=== PATIENT | male | born 1985 | race African-American/Black ===

== ENCOUNTER 2021-04-12 12:30 | Inpatient (IN) | payer OTHER ==
[2021-04-12 14:28] LABS: BASO % 0.8 % (0-2.0); EOS % 7.3 % (0-4.5); HEMOGLOBIN 7.2 GM/dL (11.7-16.9); LYMPH % 29.9 % (8-40); MCH 25.8 pg (25.7-33.7); MCHC 34.2 g/dl (32.0-35.9); MEAN CELL VOLUME 75.4 fl (80-96); MEAN PLT VOLUME 6.4 fl (7.5-11.1); MONO % 6.8 % (3.8-10.2); NEUT % 55.2 % (42.8-82.8); PLATELET COUNT 353 10^3/uL (134-434); RBC 2.78 M/mm3 (4.00-5.60); RDW 16.8 % (11.9-15.9); WHITE BLOOD COUNT 7.4 K/mm3 (4.0-10.0)
[2021-04-12 14:36] LABS: INR 1.06 (0.83-1.09); PROTHROMBIN TIME (PATIENT) 12.8 SEC (9.7-13.0)
[2021-04-12 14:48] LABS: CHLORIDE 106 mmol/L (98-107); SODIUM 138 mmol/L (136-145)
[2021-04-12 14:50] LABS: ALBUMIN 3.7 g/dl (3.4-5.0); ANION GAP 13 MMOL/L (8-16); CO2 18 mmol/L (21-32); GLUCOSE,RANDOM 87 mg/dL (74-106); MAGNESIUM 2.8 mg/dL (1.8-2.4)
[2021-04-12 14:53] LABS: SGPT/ALT 40 U/L (13-61)
[2021-04-12 14:54] LABS: SGOT/AST 13 U/L (15-37)
[2021-04-12 14:55] LABS: BILIRUBIN,TOTAL 0.2 mg/dL (0.2-1); TOT PROT 7.4 g/dl (6.4-8.2)
[2021-04-12 14:56] LABS: ALK PHOS 75 U/L (45-117)
[2021-04-12 15:57] LABS: CALCIUM 6.4 mg/dL (8.5-10.1); CREATININE 14.3 mg/dL (0.55-1.3); PHOSPHOROUS 8.6 mg/dL (2.5-4.9)
[2021-04-12] MEDS ORDERED: CALCIUM GLUCONATE 10% - 1,000 MG/10 ML VIAL IVPUSH ONE (16:17)
[2021-04-12] MEDS ORDERED: CALCIUM GLUCONATE 10% - 1,000 MG/10 ML VIAL ONE (16:27)
[2021-04-12] MEDS ORDERED: SODIUM ZIRCONIUM CYCLOSILICATE (LOKELMA) 5 GM PACKET ONE (16:27)
[2021-04-12] MEDS: SODIUM ZIRCONIUM CYCLOSILICATE (LOKELMA) 5 GM PACKET PO SCH (16:32)
[2021-04-12] MEDS ORDERED: SODIUM BICARBONATE 8.4% 50 MEQ/50 ML DISP.SYRIN IVPUSH ONE (17:13)
[2021-04-12] MEDS ORDERED: amLODIPine BESYLATE 10 MG TABLET (FP) PO ONE (17:13)
[2021-04-12] MEDS ORDERED: NAPH,MB-DB/K PH,MBDB POWDER PACKET ONE (17:23)
[2021-04-12] MEDS ORDERED: SODIUM BICARBONATE 8.4% - 50 ML ONE (17:23)
[2021-04-12] MEDS ORDERED: amLODIPine BESYLATE 5 MG TABLET (FP) ONE (17:23)
[2021-04-12] MEDS: SODIUM CHLORIDE 0.45% 1,000 ML IV SCH (17:35)
[2021-04-12] MEDS: CALCIUM ACETATE 667 MG CAPSULE (FP) PO SCH (17:35)
[2021-04-12 21:36] LABS: HEPATITIS B SURFACE AG MATERN NON-REACTIVE (NONREACTIVE)
[2021-04-12] MEDS: SODIUM BICARBONATE 650 MG TABLET PO SCH (22:45)
[2021-04-12 23:00] VITALS: BMI 34.8
[2021-04-12 23:24] LABS: EPI CELLS 4 /uL (0-25.1); HYALINE CASTS 0 /uL (0-3.1); PH,URINE 6.5 (5.0-8.0); URINE APPEARANCE CLEAR; URINE BACTERIA 2 /uL (0-1359); URINE BILIRUBIN NEGATIVE (NEGATIVE); URINE COLOR YELLOW; URINE GLUCOSE (UA) NEGATIVE (NEGATIVE); URINE KETONE NEGATIVE (NEGATIVE); URINE LEUK ESTERASE NEGATIVE (NEGATIVE); URINE NITRITE NEGATIVE (NEGATIVE); URINE PROTEIN 3+ (NEGATIVE); URINE RBC 9 /uL (0-23.9); URINE UROBILINOGEN 0.2 mg/dL (0.2-1.0); URINE WBC 7 /uL (0-25.8)
[2021-04-13 00:10] LABS: LDH 318 U/L (87-246)
[2021-04-13 01:41] LABS: IRON SERUM 48 ug/dL (50-175); TOTAL IRON BINDING CAPACITY 214 ug/dL (250-450)
[2021-04-13 03:35] LABS: CHLORIDE 107 mmol/L (98-107); SODIUM 139 mmol/L (136-145)
[2021-04-13 03:36] LABS: ANION GAP 14 MMOL/L (8-16); CO2 18 mmol/L (21-32)
[2021-04-13 04:05] LABS: ALBUMIN 3.2 g/dl (3.4-5.0)
[2021-04-13 04:06] LABS: GLUCOSE,RANDOM 99 mg/dL (74-106)
[2021-04-13 04:09] LABS: SGOT/AST 13 U/L (15-37); SGPT/ALT 31 U/L (13-61)
[2021-04-13 04:10] LABS: BILIRUBIN,TOTAL 0.3 mg/dL (0.2-1); TOT PROT 6.6 g/dl (6.4-8.2)
[2021-04-13 04:11] LABS: ALK PHOS 69 U/L (45-117)
[2021-04-13 04:31] LABS: BLOOD UREA NITROGEN 113.1 mg/dL (7-18); CALCIUM 5.9 mg/dL (8.5-10.1)
[2021-04-13] MEDS: SODIUM BICARBONATE 650 MG TABLET PO SCH ×3 (06:22→22:03)
[2021-04-13] MEDS ORDERED: CALCIUM GLUCONATE 10% - 1,000 MG/10 ML VIAL IVPUSH ONE ×2 (06:36→06:53)
[2021-04-13 07:22] LABS: BASO % 0.8 % (0-2.0); HEMATOCRIT 23.7 % (35.4-49); HEMOGLOBIN 8.1 GM/dL (11.7-16.9); LYMPH % 29.8 % (8-40); MCHC 34.1 g/dl (32.0-35.9); MEAN CELL VOLUME 76.3 fl (80-96); MEAN PLT VOLUME 6.2 fl (7.5-11.1); MONO % 6.4 % (3.8-10.2); PLATELET COUNT 318 10^3/uL (134-434); RBC 3.11 M/mm3 (4.00-5.60); RDW 16.5 % (11.9-15.9); WHITE BLOOD COUNT 7.9 K/mm3 (4.0-10.0)
[2021-04-13 07:43] LABS: CHLORIDE 107 mmol/L (98-107); SODIUM 139 mmol/L (136-145)
[2021-04-13 07:47] LABS: ALBUMIN 3.3 g/dl (3.4-5.0)
[2021-04-13] MEDS: CALCIUM ACETATE 667 MG CAPSULE (FP) PO SCH ×3 (07:47→17:40)
[2021-04-13 07:50] LABS: CO2 17 mmol/L (21-32); MAGNESIUM 2.5 mg/dL (1.8-2.4); SGOT/AST 15 U/L (15-37); SGPT/ALT 33 U/L (13-61)
[2021-04-13 07:52] LABS: GLUCOSE,RANDOM 80 mg/dL (74-106)
[2021-04-13 07:54] LABS: TRIGLYCERIDES 218 mg/dL (0-150)
[2021-04-13 07:55] LABS: CHOLESTEROL 203 mg/dL (50-200)
[2021-04-13 07:56] LABS: BILIRUBIN,TOTAL 0.3 mg/dL (0.2-1); LDL CHOLESTEROL (ONLY SJRH) 126 mg/dL (5-100)
[2021-04-13 07:57] LABS: ALK PHOS 73 U/L (45-117)
[2021-04-13 07:58] LABS: ANION GAP 14 MMOL/L (8-16); BLOOD UREA NITROGEN 114.3 mg/dL (7-18); CREATININE 13.7 mg/dL (0.55-1.3); HDL CHOLESTEROL 35 mg/dL (40-60)
[2021-04-13] MEDS ORDERED: PT OWN MED DRAWER 7, Y5N ONE (08:33)
[2021-04-13] MEDS: CALCITRIOL 0.25 MCG CAPSULE (FP) PO SCH ×2 (09:27→22:02)
[2021-04-13] MEDS: SODIUM ZIRCONIUM CYCLOSILICATE (LOKELMA) 5 GM PACKET PO SCH (09:28)
[2021-04-13] MEDS ORDERED: INSULIN REGULAR HUMAN 100 UNITS/ML *VIAL IVPUSH ONE (09:45)
[2021-04-13] MEDS ORDERED: SODIUM CHLORIDE 250 ML IV PRN (13:43)
[2021-04-13] MEDS ORDERED: LIDOCAINE HCL 1%, 10 MG/ML (20ML VIAL) ONE (14:20)
[2021-04-13] MEDS: PANTOPRAZOLE 40 MG TABLET PO SCH (15:00)
[2021-04-13] MEDS ORDERED: LIDOCAINE HCL 1%, 10 MG/ML (20ML VIAL) SQ ONE (15:00)
[2021-04-13] MEDS: ACETAMINOPHEN 325 MG TABLET (FP) PO PRN (17:40)
[2021-04-13] MEDS: SODIUM CHLORIDE 0.45% 1,000 ML IV SCH (19:14)
[2021-04-13] MEDS ORDERED: ROSUVASTATIN CA 20 MG TABLET (FP) PO SCH (22:00)
[2021-04-13] MEDS: ROSUVASTATIN CA 10 MG TABLET (FP) PO SCH (22:02)
[2021-04-13] MEDS ORDERED: amLODIPine BESYLATE 5 MG TABLET (FP) PO ONE (22:25)
[2021-04-14] MEDS: SODIUM BICARBONATE 650 MG TABLET PO SCH (05:50)
[2021-04-14 08:16] LABS: BASO % 0.6 % (0-2.0); EOS % 4.9 % (0-4.5); HEMATOCRIT 19.4 % (35.4-49); LYMPH % 29.9 % (8-40); MCH 26.6 pg (25.7-33.7); MCHC 35.2 g/dl (32.0-35.9); MEAN CELL VOLUME 75.6 fl (80-96); MEAN PLT VOLUME 7.1 fl (7.5-11.1); MONO % 9.2 % (3.8-10.2); NEUT % 55.4 % (42.8-82.8); PLATELET COUNT 274 10^3/uL (134-434); RBC 2.57 M/mm3 (4.00-5.60); RDW 16.8 % (11.9-15.9); WHITE BLOOD COUNT 7.9 K/mm3 (4.0-10.0)
[2021-04-14 08:30] LABS: CHLORIDE 104 mmol/L (98-107); SODIUM 140 mmol/L (136-145)
[2021-04-14] MEDS: CALCIUM ACETATE 667 MG CAPSULE (FP) PO SCH ×3 (08:31→17:04)
[2021-04-14 08:42] LABS: ALBUMIN 3.1 g/dl (3.4-5.0); ANION GAP 12 MMOL/L (8-16); CO2 23 mmol/L (21-32); GLUCOSE,RANDOM 82 mg/dL (74-106); MAGNESIUM 2.1 mg/dL (1.8-2.4)
[2021-04-14 08:43] LABS: SGOT/AST 15 U/L (15-37); SGPT/ALT 29 U/L (13-61)
[2021-04-14 08:45] LABS: BILIRUBIN,TOTAL 0.5 mg/dL (0.2-1); HEMOGLOBIN 6.8 GM/dL (11.7-16.9); PHOSPHOROUS 7.9 mg/dL (2.5-4.9); TOT PROT 6.4 g/dl (6.4-8.2)
[2021-04-14 08:46] LABS: ALK PHOS 66 U/L (45-117)
[2021-04-14 08:50] LABS: BLOOD UREA NITROGEN 72.3 mg/dL (7-18); CALCIUM 6.5 mg/dL (8.5-10.1); CREATININE 9.9 mg/dL (0.55-1.3)
[2021-04-14] MEDS ORDERED: amLODIPine BESYLATE 5 MG TABLET (FP) PO ONE (09:00)
[2021-04-14] MEDS: PANTOPRAZOLE 40 MG TABLET PO SCH (10:31)
[2021-04-14] MEDS: SODIUM ZIRCONIUM CYCLOSILICATE (LOKELMA) 5 GM PACKET PO SCH (10:32)
[2021-04-14] MEDS: CALCITRIOL 0.25 MCG CAPSULE (FP) PO SCH ×2 (10:32→21:53)
[2021-04-14] MEDS ORDERED: CALCIUM GLUCONATE 10% - 1,000 MG/10 ML VIAL IVPUSH ONE (12:50)
[2021-04-14] MEDS: METOPROLOL TARTRATE 25 MG TABLET (FP) PO SCH ×2 (13:22→21:16)
[2021-04-14] MEDS: ACETAMINOPHEN 325 MG TABLET (FP) PO PRN (17:13)
[2021-04-14 20:22] LABS: BASO % 0.6 % (0-2.0); EOS % 4.3 % (0-4.5); HEMOGLOBIN 9.2 GM/dL (11.7-16.9); LYMPH % 23.1 % (8-40); MCH 26.7 pg (25.7-33.7); MCHC 32.9 g/dl (32.0-35.9); MEAN CELL VOLUME 81.1 fl (80-96); MEAN PLT VOLUME 6.6 fl (7.5-11.1); MONO % 10.2 % (3.8-10.2); NEUT % 61.8 % (42.8-82.8); PLATELET COUNT 267 10^3/uL (134-434); RBC 3.45 M/mm3 (4.00-5.60); RDW 16.5 % (11.9-15.9); WHITE BLOOD COUNT 9.1 K/mm3 (4.0-10.0)
[2021-04-14] MEDS ORDERED: ACETAMINOPHEN 1000 MG/100 ML VIAL (NON FORMULARY) IVPB ONE (21:00)
[2021-04-14] MEDS: ROSUVASTATIN CA 10 MG TABLET (FP) PO SCH (21:16)
[2021-04-14] MEDS: traMADol HCL 50 MG TABLET PO PRN (22:44)
[2021-04-15] MEDS ORDERED: SODIUM CHLORIDE 250 ML IV PRN (08:11)
[2021-04-15] MEDS: amLODIPine BESYLATE 10 MG TABLET (FP) PO SCH ×2 (08:20→10:27)
[2021-04-15] MEDS: CALCIUM ACETATE 667 MG CAPSULE (FP) PO SCH ×3 (08:20→17:47)
[2021-04-15] MEDS: traMADol HCL 50 MG TABLET PO PRN ×2 (08:25→22:10)
[2021-04-15] MEDS: METOPROLOL TARTRATE 50 MG TABLET (FP) PO SCH ×2 (10:26→22:10)
[2021-04-15] MEDS: CALCITRIOL 0.25 MCG CAPSULE (FP) PO SCH ×2 (10:26→22:10)
[2021-04-15] MEDS: PANTOPRAZOLE 40 MG TABLET PO SCH (10:26)
[2021-04-15 12:29] LABS: BASO % 0.7 % (0-2.0); EOS % 3.3 % (0-4.5); HEMATOCRIT 22.5 % (35.4-49); HEMOGLOBIN 7.9 GM/dL (11.7-16.9); LYMPH % 25.4 % (8-40); MCH 27.2 pg (25.7-33.7); MCHC 35.3 g/dl (32.0-35.9); MEAN CELL VOLUME 76.9 fl (80-96); MEAN PLT VOLUME 6.8 fl (7.5-11.1); MONO % 6.8 % (3.8-10.2); NEUT % 63.8 % (42.8-82.8); PLATELET COUNT 243 10^3/uL (134-434); RBC 2.92 M/mm3 (4.00-5.60); RDW 16.5 % (11.9-15.9); WHITE BLOOD COUNT 6.6 K/mm3 (4.0-10.0)
[2021-04-15 12:48] LABS: CHLORIDE 102 mmol/L (98-107); SODIUM 138 mmol/L (136-145)
[2021-04-15 12:51] LABS: ALBUMIN 3.1 g/dl (3.4-5.0); ANION GAP 10 MMOL/L (8-16); CO2 27 mmol/L (21-32); GLUCOSE,RANDOM 110 mg/dL (74-106); MAGNESIUM 2.2 mg/dL (1.8-2.4)
[2021-04-15 12:54] LABS: PHOSPHOROUS 4.8 mg/dL (2.5-4.9); SGOT/AST 21 U/L (15-37); SGPT/ALT 33 U/L (13-61)
[2021-04-15 12:56] LABS: BILIRUBIN,TOTAL 0.3 mg/dL (0.2-1); TOT PROT 6.6 g/dl (6.4-8.2)
[2021-04-15 12:57] LABS: ALK PHOS 59 U/L (45-117)
[2021-04-15 12:59] LABS: CALCIUM 6.9 mg/dL (8.5-10.1); CREATININE 8.5 mg/dL (0.55-1.3)
[2021-04-15 16:08] LABS: ATYPICAL pANCA <1:20 titer (Neg:<1:20); C-ANCA <1:20 titer (Neg:<1:20)
[2021-04-15] MEDS: ACETAMINOPHEN 325 MG TABLET (FP) PO PRN (17:57)
[2021-04-15] MEDS: ROSUVASTATIN CA 10 MG TABLET (FP) PO SCH (22:10)
[2021-04-16] MEDS: METOPROLOL TARTRATE 50 MG TABLET (FP) PO SCH (10:15)
[2021-04-16] MEDS: CALCIUM ACETATE 667 MG CAPSULE (FP) PO SCH ×2 (10:15→12:26)
[2021-04-16] MEDS: amLODIPine BESYLATE 10 MG TABLET (FP) PO SCH (10:16)
[2021-04-16] MEDS: PANTOPRAZOLE 40 MG TABLET PO SCH (10:16)
[2021-04-16] MEDS: CALCITRIOL 0.25 MCG CAPSULE (FP) PO SCH (10:16)
[2021-04-16 10:50] LABS: BASO % 0.7 % (0-2.0); EOS % 3.8 % (0-4.5); HEMATOCRIT 25.5 % (35.4-49); HEMOGLOBIN 8.8 GM/dL (11.7-16.9); LYMPH % 20.8 % (8-40); MCH 26.8 pg (25.7-33.7); MCHC 34.6 g/dl (32.0-35.9); MEAN CELL VOLUME 77.4 fl (80-96); MEAN PLT VOLUME 6.6 fl (7.5-11.1); MONO % 9.8 % (3.8-10.2); NEUT % 64.9 % (42.8-82.8); PLATELET COUNT 246 10^3/uL (134-434); RBC 3.29 M/mm3 (4.00-5.60); RDW 16.6 % (11.9-15.9); WHITE BLOOD COUNT 8.7 K/mm3 (4.0-10.0)
[2021-04-16 11:08] LABS: CHLORIDE 100 mmol/L (98-107); SODIUM 138 mmol/L (136-145)
[2021-04-16 11:10] LABS: ALBUMIN 3.2 g/dl (3.4-5.0); ANION GAP 11 MMOL/L (8-16); BLOOD UREA NITROGEN 63.1 mg/dL (7-18); CALCIUM 7.1 mg/dL (8.5-10.1); CO2 27 mmol/L (21-32); GLUCOSE,RANDOM 103 mg/dL (74-106)
[2021-04-16 11:13] LABS: SGPT/ALT 28 U/L (13-61)
[2021-04-16 11:14] LABS: SGOT/AST 18 U/L (15-37)
[2021-04-16 11:15] LABS: BILIRUBIN,TOTAL 0.3 mg/dL (0.2-1)
[2021-04-16 11:16] LABS: ALK PHOS 69 U/L (45-117)
[2021-04-16 11:28] LABS: CREATININE 9.4 mg/dL (0.55-1.3)
[2021-04-16] MEDS ORDERED: hydrALAZINE HCL 10 MG TABLET PO SCH (14:00)
[2021-04-16 15:44] VITALS: BP 151/108; PULSE 102; TEMP 98
[2021-04-16] MEDS ORDERED: METOPROLOL TARTRATE 50 MG TABLET (FP) PO SCH (22:00)
== END 2021-04-16 16:37 | disposition left against medical advice (07) | DRG 469 ==
LOC: JER 12:30 → JERBED 19:23 → J4W 22:22
PROVIDERS: ADMIT Internal Medicine; ATTEND Internal Medicine
PROC: 30233N1 Transfusion of Nonautologous Red Blood Cells into Peripheral Vein, Percutaneous Approach (ICD-10-PCS; 2021-04-12)
PROC: 5A1D70Z Performance of Urinary Filtration, Intermittent, Less than 6 Hours Per Day (ICD-10-PCS; principal; 2021-04-15)
DX: N17.9 Acute kidney failure, unspecified (principal); E87.2 Acidosis; D64.9 Anemia, unspecified; I12.9 Hypertensive chronic kidney disease with stage 1 through stage 4 chronic kidney disease, or unspecified chronic kidney disease; E87.5 Hyperkalemia; N18.9 Chronic kidney disease, unspecified; E83.51 Hypocalcemia; E83.39 Other disorders of phosphorus metabolism; E78.5 Hyperlipidemia, unspecified; E66.9 Obesity, unspecified; Z68.34 Body mass index [BMI] 34.0-34.9, adult
CPT/HCPCS: 36415; 36430; 71045-TC-FY; 76775-TC; 76856-TC; 80051; 80053; 80061; 81003; 82272; 82310; 82607; 82728; 82746; 82962; 83010; 83036; 83516; 83520; 83540; 83550; 83615; 83735; 83970; 84100; 84155; 84165; 85025; 85045; 85610; 86038; 86160; 86225; 86256; 86706; 86803; 86850; 86900; 86901; 86922; 87207; 87340; 87517; 87522; 93005; 93010; 99285-25; C9803; J0131; P9051; P9058; U0003; U0005

== ENCOUNTER 2021-04-18 10:42 | Inpatient (IN) | payer OTHER ==
[2021-04-18 11:12] VITALS: BMI 34.8
[2021-04-18 13:33] LABS: BASO % 1.2 % (0-2.0); EOS % 3.6 % (0-4.5); HEMOGLOBIN 9.5 GM/dL (11.7-16.9); LYMPH % 26.3 % (8-40); MCH 26.4 pg (25.7-33.7); MCHC 33.8 g/dl (32.0-35.9); MEAN PLT VOLUME 7.5 fl (7.5-11.1); MONO % 17.8 % (3.8-10.2); NEUT % 51.1 % (42.8-82.8); PLATELET COUNT 278 10^3/uL (134-434); RBC 3.58 M/mm3 (4.00-5.60); RDW 16.1 % (11.9-15.9); WHITE BLOOD COUNT 5.6 K/mm3 (4.0-10.0)
[2021-04-18 13:42] LABS: INR 1.14 (0.83-1.09); PROTHROMBIN TIME (PATIENT) 13.7 SEC (9.7-13.0)
[2021-04-18 13:45] LABS: ACTIVATED PTT 28.7 SECONDS (25.2-36.5)
[2021-04-18 14:01] LABS: CHLORIDE 96 mmol/L (98-107); SODIUM 133 mmol/L (136-145)
[2021-04-18 14:03] LABS: CALCIUM 8.1 mg/dL (8.5-10.1)
[2021-04-18 14:04] LABS: ALBUMIN 3.8 g/dl (3.4-5.0); ANION GAP 15 MMOL/L (8-16); BLOOD UREA NITROGEN 86.7 mg/dL (7-18); CO2 22 mmol/L (21-32); GLUCOSE,RANDOM 81 mg/dL (74-106)
[2021-04-18 14:07] LABS: SGOT/AST 35 U/L (15-37); SGPT/ALT 37 U/L (13-61)
[2021-04-18 14:08] LABS: BILIRUBIN,TOTAL 0.4 mg/dL (0.2-1); TOT PROT 8.4 g/dl (6.4-8.2)
[2021-04-18 14:09] LABS: ALK PHOS 82 U/L (45-117); CREATININE 12.6 mg/dL (0.55-1.3)
[2021-04-18] MEDS ORDERED: CASIRIVIMAB/IMDEVIMAB 10 ML in SODIUM CHLORIDE 100 ML IVPB ONE (14:29)
[2021-04-18 15:09] LABS: SARS COV-2 MOLECULAR Presumptive Positive (Negative)
[2021-04-18] MEDS ORDERED: amLODIPine BESYLATE 10 MG TABLET (FP) PO ONE (15:51)
[2021-04-18] MEDS ORDERED: amLODIPine BESYLATE 5 MG TABLET (FP) ONE (16:02)
[2021-04-18] MEDS ORDERED: SODIUM CHLORIDE 250 ML IV PRN (16:08)
[2021-04-18] MEDS ORDERED: ceFAZolin SODIUM 1 GM VIAL IVPB ONE (17:37)
[2021-04-18] MEDS ORDERED: PROPOFOL 20 ML ONE (17:39)
[2021-04-18] MEDS ORDERED: MIDAZOLAM HCL 2 MG/2 ML SINGLE DOSE VIAL ONE ×3 (17:39→17:56)
[2021-04-18] MEDS ORDERED: LIDOCAINE HCL 1%, 10 MG/ML (20ML VIAL) INF ONE (18:06)
[2021-04-18] MEDS ORDERED: ONDANSETRON 4 MG/2 ML VIAL IVPUSH PRN (18:50)
[2021-04-18] MEDS ORDERED: amLODIPine BESYLATE 10 MG TABLET (FP) PO SCH (20:00)
[2021-04-18] MEDS: ACETAMINOPHEN 325 MG TABLET (FP) PO PRN (21:05)
[2021-04-18] MEDS: METOPROLOL TARTRATE 50 MG TABLET (FP) PO SCH (21:06)
[2021-04-19] MEDS ORDERED: ACETAMINOPHEN 1000 MG/100 ML VIAL IVPB ONE (00:38)
[2021-04-19] MEDS ORDERED: SODIUM CHLORIDE 250 ML IV PRN (08:58)
[2021-04-19] MEDS ORDERED: HEPARIN NA (PORCINE) 5,000 UNITS/ML 1ML VIAL IVPUSH ONE ×2 (09:00→16:08)
[2021-04-19 09:37] LABS: HEMOGLOBIN 8.1 GM/dL (11.7-16.9); MCH 26.8 pg (25.7-33.7); MCHC 34.9 g/dl (32.0-35.9); MEAN CELL VOLUME 76.6 fl (80-96); MEAN PLT VOLUME 7.3 fl (7.5-11.1); PLATELET COUNT 226 10^3/uL (134-434); RBC 3.01 M/mm3 (4.00-5.60); WHITE BLOOD COUNT 5.4 K/mm3 (4.0-10.0)
[2021-04-19 09:57] LABS: CHLORIDE 101 mmol/L (98-107); SODIUM 136 mmol/L (136-145)
[2021-04-19 09:58] LABS: ANION GAP 15 MMOL/L (8-16); BLOOD UREA NITROGEN 94.8 mg/dL (7-18); CALCIUM 7.6 mg/dL (8.5-10.1); CO2 20 mmol/L (21-32); GLUCOSE,RANDOM 74 mg/dL (74-106)
[2021-04-19 10:00] LABS: MAGNESIUM 2.6 mg/dL (1.8-2.4)
[2021-04-19 10:30] LABS: CREATININE 13.8 mg/dL (0.55-1.3); PHOSPHOROUS 9.1 mg/dL (2.5-4.9)
[2021-04-19 10:40] LABS: ANISOCYTOSIS 2+; MACROCYTOSIS 0; PLATELET ESTIMATE NORMAL
[2021-04-19] MEDS: amLODIPine BESYLATE 10 MG TABLET (FP) PO SCH (10:41)
[2021-04-19] MEDS: hydrALAZINE HCL 25 MG TABLET (FP) PO SCH ×2 (10:41→21:10)
[2021-04-19] MEDS: METOPROLOL TARTRATE 50 MG TABLET (FP) PO SCH ×2 (10:41→21:10)
[2021-04-19] MEDS: ACETAMINOPHEN 325 MG TABLET (FP) PO PRN ×2 (12:57→21:10)
[2021-04-19] MEDS: SEVELAMER CARBONATE 800 MG TAB (FP) PO SCH ×2 (12:57→17:24)
[2021-04-19 14:08] LABS: SARS-CoV-2 NAA Detected (Not Detected)
[2021-04-20] MEDS: ACETAMINOPHEN 325 MG TABLET (FP) PO PRN ×2 (05:46→13:08)
[2021-04-20 07:43] LABS: BASO % 1.1 % (0-2.0); EOS % 6.1 % (0-4.5); HEMATOCRIT 22.6 % (35.4-49); HEMOGLOBIN 7.8 GM/dL (11.7-16.9); MCH 26.7 pg (25.7-33.7); MCHC 34.7 g/dl (32.0-35.9); MEAN CELL VOLUME 76.9 fl (80-96); MEAN PLT VOLUME 7.1 fl (7.5-11.1); MONO % 13.1 % (3.8-10.2); NEUT % 50.7 % (42.8-82.8); PLATELET COUNT 212 10^3/uL (134-434); RBC 2.93 M/mm3 (4.00-5.60); RDW 16.1 % (11.9-15.9); WHITE BLOOD COUNT 7.1 K/mm3 (4.0-10.0)
[2021-04-20 07:56] LABS: CHLORIDE 98 mmol/L (98-107); SODIUM 136 mmol/L (136-145)
[2021-04-20 08:00] LABS: ANION GAP 12 MMOL/L (8-16); CO2 26 mmol/L (21-32); GLUCOSE,RANDOM 85 mg/dL (74-106); MAGNESIUM 2.3 mg/dL (1.8-2.4)
[2021-04-20 08:03] LABS: PHOSPHOROUS 8.8 mg/dL (2.5-4.9); SGOT/AST 22 U/L (15-37); SGPT/ALT 18 U/L (13-61)
[2021-04-20 08:04] LABS: BILIRUBIN,TOTAL 0.3 mg/dL (0.2-1); LDH 306 U/L (87-246)
[2021-04-20 08:06] LABS: ALK PHOS 71 U/L (45-117)
[2021-04-20 08:20] LABS: ALBUMIN 2.9 g/dl (3.4-5.0); BLOOD UREA NITROGEN 62.1 mg/dL (7-18); CREATININE 10.4 mg/dL (0.55-1.3)
[2021-04-20] MEDS: METOPROLOL TARTRATE 50 MG TABLET (FP) PO SCH ×2 (09:22→21:17)
[2021-04-20] MEDS: SEVELAMER CARBONATE 800 MG TAB (FP) PO SCH ×3 (09:22→17:38)
[2021-04-20] MEDS: hydrALAZINE HCL 25 MG TABLET (FP) PO SCH ×3 (09:22→21:17)
[2021-04-20] MEDS: APIXABAN 2.5 MG TABLET PO SCH ×2 (09:22→21:17)
[2021-04-20] MEDS: amLODIPine BESYLATE 10 MG TABLET (FP) PO SCH (09:22)
[2021-04-21] MEDS: hydrALAZINE HCL 25 MG TABLET (FP) PO SCH ×3 (06:08→21:09)
[2021-04-21] MEDS: SEVELAMER CARBONATE 800 MG TAB (FP) PO SCH ×3 (09:40→17:53)
[2021-04-21] MEDS: amLODIPine BESYLATE 10 MG TABLET (FP) PO SCH (09:40)
[2021-04-21] MEDS: APIXABAN 2.5 MG TABLET PO SCH ×2 (09:40→21:09)
[2021-04-21] MEDS: METOPROLOL TARTRATE 50 MG TABLET (FP) PO SCH ×2 (09:40→21:09)
[2021-04-21 09:55] LABS: BASO % 0.9 % (0-2.0); EOS % 7.7 % (0-4.5); HEMATOCRIT 23.9 % (35.4-49); HEMOGLOBIN 8.4 GM/dL (11.7-16.9); LYMPH % 30.6 % (8-40); MCH 26.7 pg (25.7-33.7); MCHC 35.1 g/dl (32.0-35.9); MEAN CELL VOLUME 76.1 fl (80-96); MEAN PLT VOLUME 7.2 fl (7.5-11.1); MONO % 7.1 % (3.8-10.2); NEUT % 53.7 % (42.8-82.8); PLATELET COUNT 280 10^3/uL (134-434); RBC 3.15 M/mm3 (4.00-5.60); RDW 15.9 % (11.9-15.9); WHITE BLOOD COUNT 9.2 K/mm3 (4.0-10.0)
[2021-04-21 10:10] LABS: CHLORIDE 99 mmol/L (98-107); SODIUM 136 mmol/L (136-145)
[2021-04-21 10:14] LABS: ALBUMIN 3.2 g/dl (3.4-5.0); ANION GAP 14 MMOL/L (8-16); BLOOD UREA NITROGEN 71.7 mg/dL (7-18); CO2 23 mmol/L (21-32); GLUCOSE,RANDOM 81 mg/dL (74-106); MAGNESIUM 2.3 mg/dL (1.8-2.4)
[2021-04-21 10:17] LABS: SGOT/AST 26 U/L (15-37); SGPT/ALT 16 U/L (13-61)
[2021-04-21 10:19] LABS: BILIRUBIN,TOTAL 0.3 mg/dL (0.2-1); TOT PROT 7.4 g/dl (6.4-8.2)
[2021-04-21 10:21] LABS: ALK PHOS 71 U/L (45-117)
[2021-04-21 10:38] LABS: LDH 410 U/L (87-246)
[2021-04-21 11:56] LABS: CALCIUM 6.9 mg/dL (8.5-10.1); CREATININE 12.1 mg/dL (0.55-1.3); PHOSPHOROUS 9.3 mg/dL (2.5-4.9)
[2021-04-21] MEDS ORDERED: SODIUM CHLORIDE 250 ML IV PRN (14:55)
[2021-04-22] MEDS: hydrALAZINE HCL 25 MG TABLET (FP) PO SCH ×3 (06:45→21:21)
[2021-04-22] MEDS: SEVELAMER CARBONATE 800 MG TAB (FP) PO SCH ×3 (08:37→18:20)
[2021-04-22 09:55] LABS: HEMATOCRIT 22.7 % (35.4-49); HEMOGLOBIN 7.7 GM/dL (11.7-16.9); MCH 25.9 pg (25.7-33.7); MCHC 33.9 g/dl (32.0-35.9); MEAN CELL VOLUME 76.6 fl (80-96); MEAN PLT VOLUME 7.2 fl (7.5-11.1); PLATELET COUNT 223 10^3/uL (134-434); RBC 2.96 M/mm3 (4.00-5.60); WHITE BLOOD COUNT 2.7 K/mm3 (4.0-10.0)
[2021-04-22 10:03] LABS: CHLORIDE 100 mmol/L (98-107); SODIUM 136 mmol/L (136-145)
[2021-04-22 10:05] LABS: ALBUMIN 3.1 g/dl (3.4-5.0); ANION GAP 11 MMOL/L (8-16); BLOOD UREA NITROGEN 60.4 mg/dL (7-18); CO2 26 mmol/L (21-32); GLUCOSE,RANDOM 104 mg/dL (74-106); MAGNESIUM 2.1 mg/dL (1.8-2.4)
[2021-04-22 10:08] LABS: SGOT/AST 25 U/L (15-37); SGPT/ALT 19 U/L (13-61)
[2021-04-22 10:09] LABS: PHOSPHOROUS 6.7 mg/dL (2.5-4.9)
[2021-04-22 10:10] LABS: BILIRUBIN,TOTAL 0.2 mg/dL (0.2-1)
[2021-04-22 10:11] LABS: ALK PHOS 71 U/L (45-117)
[2021-04-22 10:13] LABS: LDH 384 U/L (87-246)
[2021-04-22 10:14] LABS: CALCIUM 6.8 mg/dL (8.5-10.1); CREATININE 9.3 mg/dL (0.55-1.3)
[2021-04-22 10:30] LABS: ANISOCYTOSIS 1+; MACROCYTOSIS 0; PLATELET ESTIMATE NORMAL
[2021-04-22] MEDS: METOPROLOL TARTRATE 50 MG TABLET (FP) PO SCH (11:11)
[2021-04-22] MEDS: amLODIPine BESYLATE 10 MG TABLET (FP) PO SCH (11:11)
[2021-04-22] MEDS: APIXABAN 2.5 MG TABLET PO SCH ×2 (11:11→21:21)
[2021-04-22 17:02] LABS: SARS COV-2 MOLECULAR Presumptive Positive (Negative)
[2021-04-22] MEDS: ATENOLOL 50 MG TABLET (FP) PO SCH (18:20)
[2021-04-23] MEDS: hydrALAZINE HCL 25 MG TABLET (FP) PO SCH ×2 (05:23→14:07)
[2021-04-23] MEDS: SEVELAMER CARBONATE 800 MG TAB (FP) PO SCH ×3 (07:55→16:58)
[2021-04-23 08:46] LABS: BASO % 0.8 % (0-2.0); EOS % 7.8 % (0-4.5); HEMATOCRIT 23.4 % (35.4-49); HEMOGLOBIN 8.2 GM/dL (11.7-16.9); MCH 26.9 pg (25.7-33.7); MCHC 34.9 g/dl (32.0-35.9); MEAN CELL VOLUME 76.9 fl (80-96); MEAN PLT VOLUME 7.1 fl (7.5-11.1); MONO % 9.8 % (3.8-10.2); NEUT % 48.6 % (42.8-82.8); PLATELET COUNT 310 10^3/uL (134-434); RBC 3.05 M/mm3 (4.00-5.60); RDW 15.6 % (11.9-15.9); WHITE BLOOD COUNT 8.4 K/mm3 (4.0-10.0)
[2021-04-23 09:09] LABS: CHLORIDE 97 mmol/L (98-107); SODIUM 136 mmol/L (136-145)
[2021-04-23 09:28] LABS: BILIRUBIN,TOTAL 0.3 mg/dL (0.2-1)
[2021-04-23 09:29] LABS: PHOSPHOROUS 7.6 mg/dL (2.5-4.9); SGPT/ALT 41 U/L (13-61)
[2021-04-23 09:30] LABS: ALBUMIN 3.2 g/dl (3.4-5.0); ALK PHOS 84 U/L (45-117); SGOT/AST 49 U/L (15-37)
[2021-04-23 09:31] LABS: ANION GAP 12 MMOL/L (8-16); BLOOD UREA NITROGEN 53.6 mg/dL (7-18); CO2 27 mmol/L (21-32); GLUCOSE,RANDOM 85 mg/dL (74-106); MAGNESIUM 2.2 mg/dL (1.8-2.4); TOT PROT 7.4 g/dl (6.4-8.2)
[2021-04-23] MEDS: ATENOLOL 50 MG TABLET (FP) PO SCH (09:33)
[2021-04-23] MEDS: LISINOPRIL 5 MG TABLET PO SCH (09:33)
[2021-04-23] MEDS: amLODIPine BESYLATE 10 MG TABLET (FP) PO SCH (09:33)
[2021-04-23] MEDS: APIXABAN 2.5 MG TABLET PO SCH ×2 (09:33→21:05)
[2021-04-23 12:07] LABS: SARS-CoV-2 NAA Detected (Not Detected)
[2021-04-23 14:11] LABS: LDH 375 U/L (87-246)
[2021-04-23 14:44] LABS: CREATININE 9.7 mg/dL (0.55-1.3)
[2021-04-23] MEDS ORDERED: PT OWN MED DRAWER 7, Y5N ONE (22:06)
[2021-04-24] MEDS ORDERED: SODIUM CHLORIDE 250 ML IV PRN (06:57)
[2021-04-24] MEDS ORDERED: EPOETIN ALFA-EPBX 4,000 UNIT/ML VIAL SQ ONE (07:00)
[2021-04-24] MEDS ORDERED: HEPARIN NA (PORCINE) 5,000 UNITS/ML 1ML VIAL IVPUSH ONE (07:00)
[2021-04-24 08:56] LABS: BASO % 0.6 % (0-2.0); EOS % 6.3 % (0-4.5); HEMOGLOBIN 7.5 GM/dL (11.7-16.9); LYMPH % 29.1 % (8-40); MCH 26.5 pg (25.7-33.7); MCHC 34.2 g/dl (32.0-35.9); MEAN CELL VOLUME 77.6 fl (80-96); MEAN PLT VOLUME 7.4 fl (7.5-11.1); MONO % 8.6 % (3.8-10.2); NEUT % 55.4 % (42.8-82.8); PLATELET COUNT 313 10^3/uL (134-434); RBC 2.83 M/mm3 (4.00-5.60); RDW 15.6 % (11.9-15.9); WHITE BLOOD COUNT 9.8 K/mm3 (4.0-10.0)
[2021-04-24 09:18] LABS: CHLORIDE 97 mmol/L (98-107); SODIUM 135 mmol/L (136-145)
[2021-04-24 09:27] LABS: ANION GAP 14 MMOL/L (8-16); BLOOD UREA NITROGEN 64.8 mg/dL (7-18); CO2 24 mmol/L (21-32); GLUCOSE,RANDOM 80 mg/dL (74-106); MAGNESIUM 2.3 mg/dL (1.8-2.4)
[2021-04-24 09:30] LABS: PHOSPHOROUS 8.2 mg/dL (2.5-4.9); SGOT/AST 33 U/L (15-37); SGPT/ALT 40 U/L (13-61)
[2021-04-24 09:31] LABS: LDH 374 U/L (87-246)
[2021-04-24 09:32] LABS: BILIRUBIN,TOTAL 0.4 mg/dL (0.2-1)
[2021-04-24 09:33] LABS: ALK PHOS 81 U/L (45-117)
[2021-04-24 09:37] LABS: CALCIUM 6.5 mg/dL (8.5-10.1); CREATININE 11.1 mg/dL (0.55-1.3)
[2021-04-24] MEDS ORDERED: PT OWN MED DRAWER 7, Y5N ONE (10:57)
[2021-04-24] MEDS: APIXABAN 2.5 MG TABLET PO SCH ×2 (11:07→22:18)
[2021-04-24] MEDS: LISINOPRIL 5 MG TABLET PO SCH (11:07)
[2021-04-24] MEDS: SEVELAMER CARBONATE 800 MG TAB (FP) PO SCH ×3 (11:07→17:50)
[2021-04-24] MEDS: amLODIPine BESYLATE 10 MG TABLET (FP) PO SCH (11:08)
[2021-04-24] MEDS: ATENOLOL 50 MG TABLET (FP) PO SCH (11:08)
[2021-04-24] MEDS ORDERED: LISINOPRIL 5 MG TABLET PO ONE (11:56)
[2021-04-25] MEDS ORDERED: PT OWN MED DRAWER 7, Y5N ONE ×2 (09:09→09:13)
[2021-04-25] MEDS: APIXABAN 2.5 MG TABLET PO SCH ×2 (09:12→21:03)
[2021-04-25] MEDS: SEVELAMER CARBONATE 800 MG TAB (FP) PO SCH ×3 (09:12→18:42)
[2021-04-25] MEDS: amLODIPine BESYLATE 10 MG TABLET (FP) PO SCH (09:12)
[2021-04-25] MEDS: ATENOLOL 50 MG TABLET (FP) PO SCH (09:13)
[2021-04-25] MEDS ORDERED: LISINOPRIL 10 MG TABLET PO SCH (10:00)
[2021-04-25 12:10] LABS: BASO % 0.9 % (0-2.0); EOS % 7.3 % (0-4.5); HEMATOCRIT 24.2 % (35.4-49); HEMOGLOBIN 8.3 GM/dL (11.7-16.9); LYMPH % 23.5 % (8-40); MCH 26.5 pg (25.7-33.7); MCHC 34.5 g/dl (32.0-35.9); MEAN CELL VOLUME 76.7 fl (80-96); MEAN PLT VOLUME 7.2 fl (7.5-11.1); MONO % 9.4 % (3.8-10.2); NEUT % 58.9 % (42.8-82.8); PLATELET COUNT 389 10^3/uL (134-434); RBC 3.15 M/mm3 (4.00-5.60); RDW 15.8 % (11.9-15.9)
[2021-04-25 12:47] LABS: ALBUMIN 3.1 g/dl (3.4-5.0); ALK PHOS 101 U/L (45-117); ANION GAP 12 MMOL/L (8-16); BILIRUBIN,TOTAL 0.6 mg/dL (0.2-1); CALCIUM 6.8 mg/dL (8.5-10.1); CHLORIDE 98 mmol/L (98-107); CO2 28 mmol/L (21-32); CREATININE 9.1 mg/dL (0.55-1.3); GLUCOSE,RANDOM 103 mg/dL (74-106); LDH 357 U/L (87-246); MAGNESIUM 2.2 mg/dL (1.8-2.4); PHOSPHOROUS 6.2 mg/dL (2.5-4.9); SGOT/AST 57 U/L (15-37); SGPT/ALT 65 U/L (13-61); SODIUM 138 mmol/L (136-145); TOT PROT 7.4 g/dl (6.4-8.2)
[2021-04-25] MEDS ORDERED: SODIUM CHLORIDE 250 ML IV PRN (14:51)
[2021-04-26] MEDS: SEVELAMER CARBONATE 800 MG TAB (FP) PO SCH ×2 (08:55→13:43)
[2021-04-26] MEDS ORDERED: HEPARIN NA (PORCINE) 5,000 UNITS/ML 1ML VIAL IVPUSH ONE (09:45)
[2021-04-26] MEDS ORDERED: LISINOPRIL 20 MG TABLET PO SCH (10:00)
[2021-04-26] MEDS ORDERED: EPOETIN ALFA-EPBX 10,000 UNIT/ML VIAL SQ ONE (10:15)
[2021-04-26] MEDS: TETRAHYDROZOLINE HCL EYE DROPS OU SCH ×2 (10:42→13:43)
[2021-04-26 10:58] LABS: BASO % 0.8 % (0-2.0); EOS % 7.8 % (0-4.5); HEMATOCRIT 21.7 % (35.4-49); HEMOGLOBIN 7.5 GM/dL (11.7-16.9); LYMPH % 24.7 % (8-40); MCH 27.1 pg (25.7-33.7); MCHC 34.8 g/dl (32.0-35.9); MEAN CELL VOLUME 77.7 fl (80-96); MEAN PLT VOLUME 7.6 fl (7.5-11.1); MONO % 5.8 % (3.8-10.2); NEUT % 60.9 % (42.8-82.8); PLATELET COUNT 412 10^3/uL (134-434); RBC 2.79 M/mm3 (4.00-5.60); RDW 15.8 % (11.9-15.9); WHITE BLOOD COUNT 9.6 K/mm3 (4.0-10.0)
[2021-04-26 11:16] LABS: CHLORIDE 98 mmol/L (98-107); SODIUM 136 mmol/L (136-145)
[2021-04-26 11:19] LABS: ANION GAP 14 MMOL/L (8-16); BLOOD UREA NITROGEN 72.9 mg/dL (7-18); CO2 25 mmol/L (21-32); GLUCOSE,RANDOM 129 mg/dL (74-106)
[2021-04-26 11:20] LABS: MAGNESIUM 2.2 mg/dL (1.8-2.4)
[2021-04-26 11:22] LABS: SGOT/AST 39 U/L (15-37); SGPT/ALT 57 U/L (13-61)
[2021-04-26 11:23] LABS: PHOSPHOROUS 7.7 mg/dL (2.5-4.9)
[2021-04-26 11:24] LABS: BILIRUBIN,TOTAL 0.3 mg/dL (0.2-1); TOT PROT 6.9 g/dl (6.4-8.2)
[2021-04-26 11:25] LABS: ALK PHOS 95 U/L (45-117); LDH 324 U/L (87-246)
[2021-04-26 11:33] LABS: CALCIUM 6.8 mg/dL (8.5-10.1); CREATININE 11.4 mg/dL (0.55-1.3)
[2021-04-26] MEDS ORDERED: PT OWN MED DRAWER 7, Y5N ONE (12:06)
[2021-04-26] MEDS ORDERED: ATENOLOL 50 MG TABLET (FP) PO SCH ×2 (12:17→13:15)
[2021-04-26 13:25] VITALS: TEMP 98.5
[2021-04-26] MEDS: APIXABAN 2.5 MG TABLET PO SCH (13:41)
[2021-04-26] MEDS: amLODIPine BESYLATE 10 MG TABLET (FP) PO SCH (13:41)
[2021-04-26] MEDS: ATENOLOL 50 MG TABLET (FP) PO SCH (13:53)
[2021-04-26 14:24] VITALS: BP 146/102; PULSE 82
[2021-04-26] MEDS ORDERED: EPOETIN ALFA-EPBX 4,000 UNIT/ML VIAL SQ ONE (14:51)
== END 2021-04-26 15:27 | disposition home health service (06) | DRG 470 ==
LOC: JER 10:42 → JERBED 12:41 → J5S 18:50
PROVIDERS: ADMIT Internal Medicine; ATTEND Nurse Practitioner Family
PROC: 05HM33Z Insertion of Infusion Device into Right Internal Jugular Vein, Percutaneous Approach (ICD-10-PCS; 2021-04-18)
PROC: B543ZZA Ultrasonography of Right Jugular Veins, Guidance (ICD-10-PCS; 2021-04-18)
PROC: 5A1D70Z Performance of Urinary Filtration, Intermittent, Less than 6 Hours Per Day (ICD-10-PCS; principal; 2021-04-19)
PROC: XW033G6 Introduction of REGN-COV2 Monoclonal Antibody into Peripheral Vein, Percutaneous Approach, New Technology Group 6 (ICD-10-PCS; 2021-04-19)
PROC: 5A1D70Z Performance of Urinary Filtration, Intermittent, Less than 6 Hours Per Day (ICD-10-PCS; 2021-04-22)
PROC: 5A1D70Z Performance of Urinary Filtration, Intermittent, Less than 6 Hours Per Day (ICD-10-PCS; 2021-04-24)
PROC: 5A1D70Z Performance of Urinary Filtration, Intermittent, Less than 6 Hours Per Day (ICD-10-PCS; 2021-04-26)
DX: I12.0 Hypertensive chronic kidney disease with stage 5 chronic kidney disease or end stage renal disease (principal); U07.1 COVID-19; N17.9 Acute kidney failure, unspecified; E11.22 Type 2 diabetes mellitus with diabetic chronic kidney disease; N18.6 End stage renal disease; Z99.2 Dependence on renal dialysis; D63.1 Anemia in chronic kidney disease; E78.5 Hyperlipidemia, unspecified; K25.9 Gastric ulcer, unspecified as acute or chronic, without hemorrhage or perforation; E83.39 Other disorders of phosphorus metabolism; E83.51 Hypocalcemia; E87.2 Acidosis; F17.200 Nicotine dependence, unspecified, uncomplicated; R53.83 Other fatigue; E87.5 Hyperkalemia; Z87.11 Personal history of peptic ulcer disease; Z79.1 Long term (current) use of non-steroidal anti-inflammatories (NSAID); R50.9 Fever, unspecified
CPT/HCPCS: 36415; 71045-TC-FY; 76000-TC-FY; 80048; 80053; 82728; 83615; 83735; 84100; 85025; 85379; 85610; 85730; 86140; 86704; 86706; 86707; 86708; 86803; 86850; 86900; 86901; 87340; 87350; 87517; 93005; 93010; 94010; 94760; 99285-25; C9803; J0131; J1644; M0240; Q0240; Q5106; U0003; U0005

== ENCOUNTER 2021-07-31 08:20 | Emergency (ER) | payer OTHER ==
[2021-07-31 08:53] VITALS: PULSE 75; TEMP 98.8; BMI 31.1
[2021-07-31 10:54] LABS: BASO % 1.2 % (0-2.0); EOS % 7.1 % (0-4.5); HEMATOCRIT 36.2 % (35.4-49); HEMOGLOBIN 11.9 GM/dL (11.7-16.9); LYMPH % 37.1 % (8-40); MCH 26.4 pg (25.7-33.7); MCHC 32.9 g/dl (32.0-35.9); MEAN PLT VOLUME 8.2 fl (7.5-11.1); MONO % 10.3 % (3.8-10.2); NEUT % 44.3 % (42.8-82.8); PLATELET COUNT 289 10^3/uL (134-434); RBC 4.53 M/mm3 (4.00-5.60); RDW 17.5 % (11.9-15.9); WHITE BLOOD COUNT 6.6 K/mm3 (4.0-10.0)
[2021-07-31 11:12] LABS: CHLORIDE 100 mmol/L (98-107); SODIUM 139 mmol/L (136-145)
[2021-07-31 11:16] LABS: ALBUMIN 3.6 g/dl (3.4-5.0); ANION GAP 12 MMOL/L (8-16); BLOOD UREA NITROGEN 46.8 mg/dL (7-18); CALCIUM 8.5 mg/dL (8.5-10.1); CO2 27 mmol/L (21-32); GLUCOSE,RANDOM 77 mg/dL (74-106)
[2021-07-31 11:18] LABS: SGOT/AST 18 U/L (15-37)
[2021-07-31 11:20] LABS: BILIRUBIN,TOTAL 0.3 mg/dL (0.2-1); TOT PROT 8.3 g/dl (6.4-8.2)
[2021-07-31 11:21] LABS: ALK PHOS 110 U/L (45-117)
[2021-07-31 11:39] LABS: INR 1.02 (0.83-1.09); PROTHROMBIN TIME (PATIENT) 11.9 SEC (9.7-13.0)
[2021-07-31 11:40] LABS: SGPT/ALT 39 U/L (13-61)
[2021-07-31 11:42] LABS: CREATININE 11.4 mg/dL (0.55-1.3)
[2021-07-31 12:14] VITALS: BP 128/70
== END 2021-07-31 12:15 | disposition home or self-care (01) ==
LOC: JER 08:20
DX: N18.6 End stage renal disease (principal); Z99.2 Dependence on renal dialysis
CPT/HCPCS: 36415; 71045-TC-FY; 80053; 85025; 85610; 86850; 86900; 86901; 93005; 93010; 99285-25; C9803; U0003; U0005

== ENCOUNTER 2021-08-07 07:18 | Day surgery (SDC) | payer OTHER ==
[2021-08-07 07:47] VITALS: BMI 31.6
[2021-08-07] MEDS ORDERED: PROMETHAZINE HCL 25 MG/1 ML VIAL IVPUSH PRN (08:12)
[2021-08-07] MEDS ORDERED: ONDANSETRON 4 MG/2 ML VIAL IVPUSH PRN (08:12)
[2021-08-07] MEDS ORDERED: LIDOCAINE HCL 1%, 10 MG/ML (20ML VIAL) ONE (10:15)
[2021-08-07] MEDS ORDERED: HEPARIN NA (PORCINE) 5,000 UNITS/ML 1ML VIAL ONE (10:16)
[2021-08-07] MEDS ORDERED: ceFAZolin SODIUM 1 GM VIAL IVPB ONE (11:14)
[2021-08-07] MEDS ORDERED: MIDAZOLAM HCL 2 MG/2 ML SINGLE DOSE VIAL ONE ×2 (11:22)
[2021-08-07] MEDS ORDERED: PROPOFOL 20 ML ONE (11:23)
[2021-08-07] MEDS ORDERED: fentaNYL CITRATE 250 MCG/5 ML VIAL ONE (11:23)
[2021-08-07] MEDS ORDERED: LIDOCAINE HCL 1%, 10 MG/ML (20ML VIAL) INF ONE ×2 (11:31)
[2021-08-07] MEDS ORDERED: HEPARIN NA (PORCINE) 5,000 UNITS/ML 1ML VIAL SQ ONE (11:31)
[2021-08-07] MEDS ORDERED: POVIDONE-IODINE OINTMENT 10% - 28.4 GM TUBE TP ONE (12:37)
[2021-08-07] MEDS ORDERED: oxyCODONE HCL 5 MG TABLET ONE (15:05)
[2021-08-07] MEDS ORDERED: oxyCODONE HCL 5 MG TABLET PO ONE (15:10)
[2021-08-07 17:55] VITALS: BP 128/91; PULSE 88; TEMP 97.8
== END 2021-08-07 16:25 | disposition home or self-care (01) ==
LOC: JOR 07:18 → JASUSAT 08:24
PROVIDERS: ATTEND Surgery
PROC: 03180ZD Bypass Left Brachial Artery to Upper Arm Vein, Open Approach (ICD-10-PCS; principal; 2021-08-07 08:00)
DX: I12.0 Hypertensive chronic kidney disease with stage 5 chronic kidney disease or end stage renal disease (principal); N18.6 End stage renal disease; Z99.2 Dependence on renal dialysis
CPT/HCPCS: 36415; 84132; 94760; 99284-25; C9803; J1644; U0003; U0005

== ENCOUNTER 2022-07-26 11:21 | Observation (INO) | payer OTHER ==
[2022-07-26 11:27] VITALS: TEMP 98.5; BMI 33.2
[2022-07-26 13:15] LABS: EOS % 5.9 % (0-4.5); HEMATOCRIT 37.2 % (35.4-49); HEMOGLOBIN 11.8 GM/dL (11.7-16.9); MCHC 31.8 g/dl (32.0-35.9); MEAN CELL VOLUME 81.7 fl (80-96); MEAN PLT VOLUME 8.5 fl (7.5-11.1); MONO % 8.4 % (3.8-10.2); NEUT % 44.7 % (42.8-82.8); PLATELET COUNT 255 10^3/uL (134-434); RBC 4.55 M/mm3 (4.00-5.60); RDW 17.5 % (11.9-15.9); WHITE BLOOD COUNT 5.7 K/mm3 (4.0-10.0)
[2022-07-26 13:16] LABS: CHLORIDE 106 mmol/L (98-107); SODIUM 141 mmol/L (136-145)
[2022-07-26 13:17] LABS: CALCIUM 8.5 mg/dL (8.5-10.1)
[2022-07-26 13:18] LABS: ALBUMIN 3.8 g/dl (3.4-5.0); ANION GAP 9 MMOL/L (8-16); BLOOD UREA NITROGEN 55.2 mg/dL (7-18); CO2 27 mmol/L (21-32); GLUCOSE,RANDOM 100 mg/dL (74-106)
[2022-07-26 13:21] LABS: SGOT/AST 8 U/L (15-37); SGPT/ALT 20 U/L (13-61)
[2022-07-26 13:23] LABS: BILIRUBIN,TOTAL 0.3 mg/dL (0.2-1); TOT PROT 7.5 g/dl (6.4-8.2)
[2022-07-26 13:24] LABS: ALK PHOS 79 U/L (45-117); CREATININE 11.9 mg/dL (0.55-1.3)
[2022-07-26] MEDS ORDERED: SODIUM CHLORIDE 250 ML IV PRN (17:24)
[2022-07-26] MEDS ORDERED: HEPARIN NA (PORCINE) 5,000 UNITS/ML 1ML VIAL IVPUSH ONE ×2 (17:24→21:30)
[2022-07-26] MEDS: HEPARIN NA (PORCINE) 5,000 UNITS/ML 1ML VIAL IVPUSH SCH ×3 (21:20→23:00)
[2022-07-26 21:35] VITALS: RESP 18
[2022-07-26 22:57] VITALS: BP 155/98; PULSE 72
== END 2022-07-26 23:28 | disposition left against medical advice (07) ==
LOC: JER 11:21 → JERBED 17:07
PROVIDERS: ADMIT Internal Medicine; ATTEND Internal Medicine
PROC: 3E033GC Introduction of Other Therapeutic Substance into Peripheral Vein, Percutaneous Approach (ICD-10-PCS; principal; 2022-07-26)
DX: T82.41XA Breakdown (mechanical) of vascular dialysis catheter, initial encounter (principal); I12.0 Hypertensive chronic kidney disease with stage 5 chronic kidney disease or end stage renal disease; N18.6 End stage renal disease; Z99.2 Dependence on renal dialysis; K25.9 Gastric ulcer, unspecified as acute or chronic, without hemorrhage or perforation; R07.9 Chest pain, unspecified; E66.8 Other obesity; Z68.32 Body mass index [BMI] 32.0-32.9, adult; E87.5 Hyperkalemia; E78.5 Hyperlipidemia, unspecified; D64.9 Anemia, unspecified; B54 Unspecified malaria; Z87.891 Personal history of nicotine dependence; Y82.8 Other medical devices associated with adverse incidents
CPT/HCPCS: 36415; 80053; 85025; 86803; 87340; 93005; 93010; 93931; 96374; 99285-25; C9803-CS; G0378; J1644; U0003; U0005

== ENCOUNTER 2022-08-01 12:38 | Observation (INO) | payer OTHER ==
[2022-08-01 13:05] VITALS: RESP 18; BMI 33.2
[2022-08-01 16:20] LABS: EOS % 3.8 % (0-4.5); HEMATOCRIT 34.9 % (35.4-49); HEMOGLOBIN 11.2 GM/dL (11.7-16.9); LYMPH % 46.1 % (8-40); MCH 26.6 pg (25.7-33.7); MCHC 32.2 g/dl (32.0-35.9); MEAN CELL VOLUME 82.4 fl (80-96); MEAN PLT VOLUME 8.7 fl (7.5-11.1); MONO % 8.3 % (3.8-10.2); NEUT % 40.8 % (42.8-82.8); PLATELET COUNT 284 10^3/uL (134-434); RBC 4.23 M/mm3 (4.00-5.60); WHITE BLOOD COUNT 6.3 K/mm3 (4.0-10.0)
[2022-08-01 16:44] LABS: CHLORIDE 104 mmol/L (98-107); SODIUM 143 mmol/L (136-145)
[2022-08-01 16:46] LABS: CALCIUM 7.9 mg/dL (8.5-10.1)
[2022-08-01 16:48] LABS: ALBUMIN 3.9 g/dl (3.4-5.0); ANION GAP 13 MMOL/L (8-16); BLOOD UREA NITROGEN 67.1 mg/dL (7-18); CO2 26 mmol/L (21-32); GLUCOSE,RANDOM 70 mg/dL (74-106)
[2022-08-01 16:50] LABS: SGOT/AST 8 U/L (15-37); SGPT/ALT 23 U/L (13-61)
[2022-08-01 16:52] LABS: BILIRUBIN,TOTAL 0.3 mg/dL (0.2-1); TOT PROT 7.7 g/dl (6.4-8.2)
[2022-08-01 16:54] LABS: ALK PHOS 79 U/L (45-117); CREATININE 13.1 mg/dL (0.55-1.3)
[2022-08-01] MEDS ORDERED: SODIUM ZIRCONIUM CYCLOSILICATE (LOKELMA) 5 GM PACKET PO ONE (17:00)
[2022-08-01] MEDS ORDERED: FUROSEMIDE 40 MG TABLET (FP) PO ONE (17:13)
[2022-08-01] MEDS ORDERED: SODIUM ZIRCONIUM CYCLOSILICATE (LOKELMA) 5 GM PACKET ONE (17:14)
[2022-08-01] MEDS ORDERED: FUROSEMIDE 40 MG/4 ML INJECTABLE VIAL ONE (17:14)
[2022-08-01 18:04] LABS: INR 0.97 (0.83-1.09); PROTHROMBIN TIME (PATIENT) 11.2 SEC (9.7-13.0)
[2022-08-01 18:07] LABS: ACTIVATED PTT 29.5 SECONDS (25.2-36.5)
[2022-08-02] MEDS ORDERED: SODIUM ZIRCONIUM CYCLOSILICATE (LOKELMA) 5 GM PACKET PO ONE
[2022-08-02] MEDS ORDERED: EPOETIN ALFA-EPBX 4,000 UNIT/ML VIAL SQ ONE (06:13)
[2022-08-02] MEDS ORDERED: HEPARIN NA (PORCINE) 5,000 UNITS/ML 1ML VIAL IVPUSH ONE ×2 (06:13→14:00)
[2022-08-02] MEDS ORDERED: SODIUM CHLORIDE 250 ML IV PRN ×2 (06:13→14:00)
[2022-08-02] MEDS ORDERED: HEPARIN NA (PORCINE) 5,000 UNITS/ML 1ML VIAL IVPUSH SCH (06:15)
[2022-08-02] MEDS ORDERED: EPOETIN ALFA-EPBX 4,000 UNIT/ML VIAL IVPUSH ONE (14:00)
[2022-08-02] MEDS: HEPARIN NA (PORCINE) 5,000 UNITS/ML 1ML VIAL IVPUSH SCH ×2 (14:00→15:00)
[2022-08-02 17:07] VITALS: BP 148/90; PULSE 70; TEMP 98.3
== END 2022-08-02 17:31 | disposition home or self-care (01) ==
LOC: JER 12:38 → INTOOBSV 17:17 → JERBED 17:17 → UNDOADMOB 17:17 → JERBED 17:42 → UNDODISOB 22:04
PROVIDERS: ADMIT Internal Medicine; ATTEND Internal Medicine
PROC: 3E033GC Introduction of Other Therapeutic Substance into Peripheral Vein, Percutaneous Approach (ICD-10-PCS; principal; 2022-08-01)
DX: T82.49XA Other complication of vascular dialysis catheter, initial encounter (principal); E66.8 Other obesity; Z68.30 Body mass index [BMI] 30.0-30.9, adult; I12.0 Hypertensive chronic kidney disease with stage 5 chronic kidney disease or end stage renal disease; N18.6 End stage renal disease; Z99.2 Dependence on renal dialysis; E78.5 Hyperlipidemia, unspecified; R77.8 Other specified abnormalities of plasma proteins; Z86.13 Personal history of malaria; F17.210 Nicotine dependence, cigarettes, uncomplicated; Z29.8 Encounter for other specified prophylactic measures; Y82.8 Other medical devices associated with adverse incidents
CPT/HCPCS: 36415; 80053; 84484; 85025; 85610; 85730; 86803; 86850; 86900; 86901; 87340; 87517; 93005; 93010; 99285-25; C9803-CS; G0378; J1644; Q5106; U0003; U0005

== ENCOUNTER 2022-08-02 11:04 | Emergency (ER) | payer OTHER ==
[2022-08-02 12:17] VITALS: RESP 18; BMI 28.4
[2022-08-02 16:49] VITALS: BP 143/97; PULSE 78; TEMP 97.8
== END 2022-08-02 17:31 | disposition home or self-care (01) ==
LOC: JER 11:04
DX: N18.6 End stage renal disease (principal); T82.41XA Breakdown (mechanical) of vascular dialysis catheter, initial encounter; Z99.2 Dependence on renal dialysis
CPT/HCPCS: 99281-25

== ENCOUNTER 2022-09-23 10:52 | Observation (INO) | payer OTHER ==
[2022-09-23 12:48] LABS: BASO % 1.7 % (0-2.0); EOS % 7.4 % (0-4.5); HEMATOCRIT 30.5 % (35.4-49); LYMPH % 37.2 % (8-40); MCH 27.6 pg (25.7-33.7); MCHC 32.7 g/dl (32.0-35.9); MEAN CELL VOLUME 84.3 fl (80-96); MEAN PLT VOLUME 8.1 fl (7.5-11.1); MONO % 18.4 % (3.8-10.2); NEUT % 35.3 % (42.8-82.8); PLATELET COUNT 241 10^3/uL (134-434); RBC 3.62 M/mm3 (4.00-5.60); RDW 17.7 % (11.9-15.9); WHITE BLOOD COUNT 4.8 K/mm3 (4.0-10.0)
[2022-09-23 12:55] LABS: INR 1.04 (0.83-1.09)
[2022-09-23 12:57] LABS: ACTIVATED PTT 31.5 SECONDS (25.2-36.5)
[2022-09-23] MEDS ORDERED: PANTOPRAZOLE SODIUM 40 MG VIAL IVPUSH ONE (13:09)
[2022-09-23 13:14] LABS: CHLORIDE 98 mmol/L (98-107); SODIUM 138 mmol/L (136-145)
[2022-09-23 13:16] LABS: ALBUMIN 3.8 g/dl (3.4-5.0); ANION GAP 11 MMOL/L (8-16); CALCIUM 8.9 mg/dL (8.5-10.1); CO2 29 mmol/L (21-32); GLUCOSE,RANDOM 96 mg/dL (74-106)
[2022-09-23 13:17] LABS: BLOOD UREA NITROGEN 75.4 mg/dL (7-18)
[2022-09-23 13:19] LABS: SGOT/AST 12 U/L (15-37)
[2022-09-23 13:20] LABS: SGPT/ALT 29 U/L (13-61)
[2022-09-23 13:21] LABS: BILIRUBIN,TOTAL 0.3 mg/dL (0.2-1); TOT PROT 7.6 g/dl (6.4-8.2)
[2022-09-23 13:22] LABS: ALK PHOS 85 U/L (45-117)
[2022-09-23 13:32] LABS: CREATININE 11.2 mg/dL (0.55-1.3)
[2022-09-23] MEDS ORDERED: PANTOPRAZOLE SODIUM 40 MG VIAL ONE (13:38)
[2022-09-23] MEDS ORDERED: PEG 3350/NA SULF BICARB CL/KCL 4000 ML SOLN.RECON PO ONE (14:59)
[2022-09-23] MEDS ORDERED: BISACODYL 5 MG TABLET.DR (FP) PO ONE (20:00)
[2022-09-23 22:06] LABS: BASO % 1.2 % (0-2.0); EOS % 7.2 % (0-4.5); HEMATOCRIT 23.5 % (35.4-49); HEMOGLOBIN 7.9 GM/dL (11.7-16.9); LYMPH % 38.3 % (8-40); MCH 28.3 pg (25.7-33.7); MCHC 33.7 g/dl (32.0-35.9); MEAN PLT VOLUME 7.6 fl (7.5-11.1); MONO % 18.9 % (3.8-10.2); NEUT % 34.4 % (42.8-82.8); PLATELET COUNT 184 10^3/uL (134-434); RDW 17.6 % (11.9-15.9); WHITE BLOOD COUNT 4.4 K/mm3 (4.0-10.0)
[2022-09-23] MEDS: PANTOPRAZOLE 40 MG TABLET PO SCH (22:28)
[2022-09-24] MEDS: POLYETHYLENE GLYCOL (HEALTHYLAX) 3350 17 GM PACKET PO SCH (09:57)
[2022-09-24] MEDS: PANTOPRAZOLE 40 MG TABLET PO SCH ×2 (09:57→22:04)
[2022-09-24 10:34] LABS: BASO % 0.9 % (0-2.0); EOS % 7.3 % (0-4.5); HEMATOCRIT 26.2 % (35.4-49); HEMOGLOBIN 8.8 GM/dL (11.7-16.9); LYMPH % 37.5 % (8-40); MCH 28.4 pg (25.7-33.7); MCHC 33.5 g/dl (32.0-35.9); MEAN CELL VOLUME 84.7 fl (80-96); MEAN PLT VOLUME 8.1 fl (7.5-11.1); MONO % 14.4 % (3.8-10.2); NEUT % 39.9 % (42.8-82.8); PLATELET COUNT 206 10^3/uL (134-434); RBC 3.09 M/mm3 (4.00-5.60); WHITE BLOOD COUNT 4.8 K/mm3 (4.0-10.0)
[2022-09-24 10:48] LABS: INR 1.11 (0.83-1.09); PROTHROMBIN TIME (PATIENT) 12.8 SEC (9.7-13.0)
[2022-09-24 10:58] LABS: CHLORIDE 101 mmol/L (98-107); SODIUM 139 mmol/L (136-145)
[2022-09-24 11:04] LABS: ANION GAP 13 MMOL/L (8-16); BLOOD UREA NITROGEN 90.4 mg/dL (7-18); CALCIUM 8.5 mg/dL (8.5-10.1); CO2 25 mmol/L (21-32); GLUCOSE,RANDOM 81 mg/dL (74-106); MAGNESIUM 2.3 mg/dL (1.8-2.4)
[2022-09-24 11:06] LABS: IRON SERUM 45 ug/dL (50-175)
[2022-09-24 11:08] LABS: PHOSPHOROUS 6.8 mg/dL (2.5-4.9); TOTAL IRON BINDING CAPACITY 242 ug/dL (250-450)
[2022-09-24] MEDS ORDERED: EPINEPHrine 1:10,000 (P-F SYR) 1 MG/10 ML DISP.SYRIN IM ONE (11:20)
[2022-09-24 11:37] LABS: CREATININE 13.1 mg/dL (0.55-1.3)
[2022-09-24] MEDS ORDERED: EPINEPHrine 1:10,000 (P-F SYR) 1 MG/10 ML DISP.SYRIN ONE (12:01)
[2022-09-24 12:21] VITALS: BMI 33.6
[2022-09-24] MEDS ORDERED: SODIUM CHLORIDE 250 ML IV PRN (12:21)
[2022-09-24] MEDS ORDERED: SODIUM ZIRCONIUM CYCLOSILICATE (LOKELMA) 5 GM PACKET PO SCH (17:00)
[2022-09-24 17:33] LABS: BASO % 0.7 % (0-2.0); EOS % 3.2 % (0-4.5); HEMATOCRIT 24.4 % (35.4-49); HEMOGLOBIN 8.2 GM/dL (11.7-16.9); LYMPH % 33.4 % (8-40); MCH 28.3 pg (25.7-33.7); MCHC 33.5 g/dl (32.0-35.9); MEAN CELL VOLUME 84.3 fl (80-96); MEAN PLT VOLUME 8.1 fl (7.5-11.1); MONO % 8.7 % (3.8-10.2); PLATELET COUNT 196 10^3/uL (134-434); RDW 17.3 % (11.9-15.9); WHITE BLOOD COUNT 5.9 K/mm3 (4.0-10.0)
[2022-09-24] MEDS: CALCIUM ACETATE 667 MG CAPSULE (FP) PO SCH (18:22)
[2022-09-24] MEDS: hydrALAZINE HCL 25 MG TABLET (FP) PO SCH (22:04)
[2022-09-25] MEDS ORDERED: SODIUM CHLORIDE 250 ML IV PRN (08:11)
[2022-09-25] MEDS ORDERED: EPOETIN ALFA-EPBX 10,000 UNIT/ML VIAL SQ ONE (09:00)
[2022-09-25 09:22] LABS: HEMATOCRIT 22.7 % (35.4-49); HEMOGLOBIN 7.5 GM/dL (11.7-16.9); MCH 27.8 pg (25.7-33.7); MCHC 33.1 g/dl (32.0-35.9); MEAN PLT VOLUME 8.2 fl (7.5-11.1); PLATELET COUNT 206 10^3/uL (134-434); RDW 17.2 % (11.9-15.9); WHITE BLOOD COUNT 5.4 K/mm3 (4.0-10.0)
[2022-09-25] MEDS ORDERED: EPOETIN ALFA EPBX SQ ONE (09:30)
[2022-09-25] MEDS ORDERED: [UNRECOGNIZED DRUG - OTHER] SQ ONE (09:30)
[2022-09-25 09:47] LABS: CHLORIDE 97 mmol/L (98-107); SODIUM 134 mmol/L (136-145)
[2022-09-25 09:57] LABS: ALBUMIN 3.3 g/dl (3.4-5.0); GLUCOSE,RANDOM 146 mg/dL (74-106)
[2022-09-25 09:58] LABS: ANION GAP 16 MMOL/L (8-16); BLOOD UREA NITROGEN 92.2 mg/dL (7-18); CO2 21 mmol/L (21-32); TOT PROT 6.1 g/dl (6.4-8.2)
[2022-09-25 10:00] LABS: PHOSPHOROUS 7.7 mg/dL (2.5-4.9); SGPT/ALT 33 U/L (13-61)
[2022-09-25] MEDS ORDERED: amLODIPine BESYLATE 10 MG TABLET (FP) PO SCH (10:00)
[2022-09-25 10:01] LABS: ALK PHOS 70 U/L (45-117); BILIRUBIN,TOTAL 0.3 mg/dL (0.2-1)
[2022-09-25 10:04] LABS: SGOT/AST 12 U/L (15-37)
[2022-09-25] MEDS: hydrALAZINE HCL 25 MG TABLET (FP) PO SCH ×2 (12:49→21:11)
[2022-09-25] MEDS: ATENOLOL 50 MG TABLET (FP) PO SCH (12:49)
[2022-09-25] MEDS: PANTOPRAZOLE 40 MG TABLET PO SCH ×2 (12:49→21:11)
[2022-09-25] MEDS: POLYETHYLENE GLYCOL (HEALTHYLAX) 3350 17 GM PACKET PO SCH (12:50)
[2022-09-25] MEDS: CALCIUM ACETATE 667 MG CAPSULE (FP) PO SCH ×3 (12:50→18:00)
[2022-09-25] MEDS: LISINOPRIL 20 MG TABLET PO SCH (12:50)
[2022-09-25 17:26] LABS: BASO % 0.7 % (0-2.0); EOS % 5.4 % (0-4.5); HEMATOCRIT 24.8 % (35.4-49); HEMOGLOBIN 8.4 GM/dL (11.7-16.9); LYMPH % 44.4 % (8-40); MCH 28.4 pg (25.7-33.7); MCHC 33.8 g/dl (32.0-35.9); MONO % 8.6 % (3.8-10.2); NEUT % 40.9 % (42.8-82.8); PLATELET COUNT 209 10^3/uL (134-434); RBC 2.95 M/mm3 (4.00-5.60); RDW 16.9 % (11.9-15.9); WHITE BLOOD COUNT 4.2 K/mm3 (4.0-10.0)
[2022-09-26 05:45] VITALS: RESP 18
[2022-09-26 07:05] VITALS: BP 120/81; PULSE 86; TEMP 98.7
[2022-09-26] MEDS ORDERED: AMOXICILLIN 500 MG CAPSULE (FP) PO SCH (10:00)
[2022-09-26] MEDS: CALCIUM ACETATE 667 MG CAPSULE (FP) PO SCH (10:31)
[2022-09-26] MEDS: POLYETHYLENE GLYCOL (HEALTHYLAX) 3350 17 GM PACKET PO SCH (10:32)
[2022-09-26] MEDS: hydrALAZINE HCL 25 MG TABLET (FP) PO SCH (10:32)
[2022-09-26] MEDS: PANTOPRAZOLE 40 MG TABLET PO SCH (10:33)
[2022-09-26] MEDS: LISINOPRIL 20 MG TABLET PO SCH (10:33)
[2022-09-26] MEDS: ATENOLOL 50 MG TABLET (FP) PO SCH (10:33)
[2022-09-26 11:28] LABS: HEMATOCRIT 23.8 % (35.4-49); HEMOGLOBIN 8.2 GM/dL (11.7-16.9); MCH 28.6 pg (25.7-33.7); MCHC 34.6 g/dl (32.0-35.9); MEAN CELL VOLUME 82.6 fl (80-96); MEAN PLT VOLUME 7.7 fl (7.5-11.1); PLATELET COUNT 251 10^3/uL (134-434); RBC 2.88 M/mm3 (4.00-5.60); RDW 17.2 % (11.9-15.9); WHITE BLOOD COUNT 5.9 K/mm3 (4.0-10.0)
[2022-09-26 11:46] LABS: CHLORIDE 96 mmol/L (98-107); SODIUM 135 mmol/L (136-145)
[2022-09-26 11:48] LABS: CALCIUM 8.4 mg/dL (8.5-10.1)
[2022-09-26 11:49] LABS: ALBUMIN 3.6 g/dl (3.4-5.0); ANION GAP 12 MMOL/L (8-16); CO2 27 mmol/L (21-32); GLUCOSE,RANDOM 107 mg/dL (74-106)
[2022-09-26 11:52] LABS: SGOT/AST 18 U/L (15-37); SGPT/ALT 41 U/L (13-61)
[2022-09-26 11:54] LABS: BILIRUBIN,TOTAL 0.3 mg/dL (0.2-1)
[2022-09-26 11:55] LABS: ALK PHOS 78 U/L (45-117)
[2022-09-26 11:59] LABS: BLOOD UREA NITROGEN 41.9 mg/dL (7-18)
[2022-09-26] MEDS ORDERED: CLARITHROMYCIN 250 MG TABLET PO SCH (22:00)
== END 2022-09-26 16:35 | disposition home or self-care (01) ==
LOC: JER 10:52 → JERBED 14:23 → J5S 21:01
PROVIDERS: ADMIT Internal Medicine; ATTEND Internal Medicine
PROC: 3E023GC Introduction of Other Therapeutic Substance into Muscle, Percutaneous Approach (ICD-10-PCS; principal; 2022-09-23)
DX: D64.9 Anemia, unspecified (principal); K57.90 Diverticulosis of intestine, part unspecified, without perforation or abscess without bleeding; I12.0 Hypertensive chronic kidney disease with stage 5 chronic kidney disease or end stage renal disease; K25.9 Gastric ulcer, unspecified as acute or chronic, without hemorrhage or perforation; Z86.13 Personal history of malaria; E66.8 Other obesity; Z68.34 Body mass index [BMI] 34.0-34.9, adult; K92.1 Melena; N18.6 End stage renal disease; Z99.2 Dependence on renal dialysis; Z86.19 Personal history of other infectious and parasitic diseases; F17.210 Nicotine dependence, cigarettes, uncomplicated
CPT/HCPCS: 36415; 80048; 80053; 82272; 82607; 82728; 82746; 83540; 83550; 83735; 84100; 84484; 85025; 85027; 85610; 85730; 86803; 86850; 86900; 86901; 87340; 88305-TC; 88341-TC; 88342-TC; 93005; 93010; 96372; 99285-25; C9803-CS; G0378; Q5106; U0003; U0005

== ENCOUNTER 2023-05-25 14:19 | Emergency (ER) | payer OTHER ==
[2023-05-25 14:39] VITALS: BP 173/96; PULSE 91; RESP 18; BMI 34.4
[2023-05-25] MEDS ORDERED: ACETAMINOPHEN 1000 MG/100 ML BAG IVPB ONE (15:04)
[2023-05-25] MEDS ORDERED: METOCLOPRAMIDE HCL INJECTION 10 MG/2 ML VIAL IVPB ONE (15:04)
[2023-05-25] MEDS ORDERED: ACETAMINOPHEN INJECTION 100 ML IVPB ONE (15:12)
[2023-05-25] MEDS ORDERED: METOCLOPRAMIDE HCL INJECTION 10 MG/2 ML VIAL ONE (15:12)
[2023-05-25 15:58] LABS: BASO % 0.4 % (0-2.0); EOS % 2.8 % (0-4.5); HEMATOCRIT 22.9 % (35.4-49); HEMOGLOBIN 7.8 GM/dL (11.7-16.9); LYMPH % 28.7 % (8-40); MCH 28.4 pg (25.7-33.7); MCHC 33.9 g/dl (32.0-35.9); MEAN CELL VOLUME 83.6 fl (80-96); MEAN PLT VOLUME 7.7 fl (7.5-11.1); MONO % 14.4 % (3.8-10.2); NEUT % 53.7 % (42.8-82.8); PLATELET COUNT 143 10^3/uL (134-434); RBC 2.74 M/mm3 (4.00-5.60); RDW 15.3 % (11.9-15.9); WHITE BLOOD COUNT 5.1 K/mm3 (4.0-10.0)
[2023-05-25 16:04] LABS: INR 1.04 (0.83-1.09); PROTHROMBIN TIME (PATIENT) 12.1 SEC (9.7-13.0)
[2023-05-25 16:16] LABS: CHLORIDE 96 mmol/L (98-107); POTASSIUM 5.8 mmol/L (3.5-5.1); SODIUM 134 mmol/L (136-145)
[2023-05-25 16:18] LABS: CALCIUM 9.6 mg/dL (8.5-10.1)
[2023-05-25 16:19] LABS: ALBUMIN 3.5 g/dl (3.4-5.0); ANION GAP 11 MMOL/L (8-16); BLOOD UREA NITROGEN 65.4 mg/dL (7-18); CO2 28 mmol/L (21-32); GLUCOSE,RANDOM 95 mg/dL (74-106); MAGNESIUM 2.6 mg/dL (1.8-2.4)
[2023-05-25 16:22] LABS: SGOT/AST 11 U/L (15-37); SGPT/ALT 19 U/L (13-61)
[2023-05-25 16:24] LABS: BILIRUBIN,TOTAL 0.4 mg/dL (0.2-1); TOT PROT 7.3 g/dl (6.4-8.2)
[2023-05-25 16:25] LABS: ALK PHOS 129 U/L (45-117)
[2023-05-25] MEDS ORDERED: SODIUM ZIRCONIUM CYCLOSILICATE (LOKELMA) 10 GM PACKET ONE (17:16)
[2023-05-25] MEDS ORDERED: SODIUM ZIRCONIUM CYCLOSILICATE (LOKELMA) 5 GM PACKET PO ONE (17:20)
[2023-05-26] MEDS ORDERED: SODIUM ZIRCONIUM CYCLOSILICATE (LOKELMA) 5 GM PACKET PO ONE (17:09)
[2023-05-26 17:50] LABS: IRON SERUM 51 ug/dL (50-175); TOTAL IRON BINDING CAPACITY 151 ug/dL (250-450)
== END 2023-05-25 17:25 | disposition home or self-care (01) ==
LOC: JER 14:19
PROC: 3E033NZ Introduction of Analgesics, Hypnotics, Sedatives into Peripheral Vein, Percutaneous Approach (ICD-10-PCS; principal; 2023-05-25)
PROC: 3E033GC Introduction of Other Therapeutic Substance into Peripheral Vein, Percutaneous Approach (ICD-10-PCS; 2023-05-25)
DX: R51.9 Headache, unspecified (principal); R05.9 Cough, unspecified; H53.8 Other visual disturbances
CPT/HCPCS: 36415; 70450-TC; 80053; 82728; 83540; 83550; 83735; 85025; 85610; 86850; 86900; 86901; 93005; 93010; 99284-25

== ENCOUNTER 2023-05-26 11:44 | Observation (INO) | payer OTHER ==
[2023-05-26 12:23] VITALS: RESP 18; BMI 32.8
[2023-05-26] MEDS ORDERED: METOCLOPRAMIDE HCL INJECTION 10 MG/2 ML VIAL IVPUSH ONE (13:55)
[2023-05-26] MEDS ORDERED: ACETAMINOPHEN 1000 MG/100 ML BAG IVPB ONE (13:56)
[2023-05-26] MEDS ORDERED: METOCLOPRAMIDE HCL INJECTION 10 MG/2 ML VIAL ONE (14:18)
[2023-05-26] MEDS ORDERED: ACETAMINOPHEN INJECTION 100 ML IVPB ONE ×2 (14:19→17:39)
[2023-05-26] MEDS ORDERED: DEXAMETHASONE SOD PHOSPHATE 10 MG/1 ML VIAL IVPUSH ONE (14:56)
[2023-05-26] MEDS ORDERED: DEXAMETHASONE SOD PHOSPHATE 10 MG/1 ML VIAL ONE (15:00)
[2023-05-26 15:19] LABS: BASO % 0.7 % (0-2.0); EOS % 2.4 % (0-4.5); HEMATOCRIT 21.6 % (35.4-49); HEMOGLOBIN 7.3 GM/dL (11.7-16.9); MCHC 33.7 g/dl (32.0-35.9); MEAN CELL VOLUME 83.2 fl (80-96); MEAN PLT VOLUME 7.6 fl (7.5-11.1); NEUT % 49.9 % (42.8-82.8); PLATELET COUNT 158 10^3/uL (134-434); RBC 2.59 M/mm3 (4.00-5.60); RDW 15.2 % (11.9-15.9); WHITE BLOOD COUNT 4.9 K/mm3 (4.0-10.0)
[2023-05-26 15:44] LABS: CHLORIDE 94 mmol/L (98-107); POTASSIUM 4.5 mmol/L (3.5-5.1); SODIUM 134 mmol/L (136-145)
[2023-05-26 15:46] LABS: CALCIUM 9.6 mg/dL (8.5-10.1)
[2023-05-26 15:47] LABS: ALBUMIN 3.5 g/dl (3.4-5.0); ANION GAP 7 MMOL/L (8-16); CO2 33 mmol/L (21-32); GLUCOSE,RANDOM 91 mg/dL (74-106); MAGNESIUM 2.4 mg/dL (1.8-2.4)
[2023-05-26 15:50] LABS: SGOT/AST 18 U/L (15-37); SGPT/ALT 27 U/L (13-61)
[2023-05-26 15:51] LABS: BILIRUBIN,TOTAL 0.5 mg/dL (0.2-1); TOT PROT 7.5 g/dl (6.4-8.2)
[2023-05-26 15:53] LABS: ALK PHOS 138 U/L (45-117)
[2023-05-26 16:04] LABS: CREATININE 9.8 mg/dL (0.55-1.3)
[2023-05-26 16:09] VITALS: BP 158/86; PULSE 89; TEMP 98
[2023-05-26] MEDS ORDERED: ACETAMINOPHEN 500 MG TABLET (FP) PO PRN (17:15)
[2023-05-26] MEDS ORDERED: SEVELAMER CARBONATE 800 MG TAB (FP) PO SCH (17:30)
[2023-05-26] MEDS ORDERED: SEVELAMER CARBONATE 800 MG TAB (FP) ONE (17:40)
[2023-05-26 18:02] LABS: IRON SERUM 108 ug/dL (50-175)
[2023-05-26 18:03] LABS: TOTAL IRON BINDING CAPACITY 172 ug/dL (250-450)
[2023-05-26] MEDS ORDERED: hydrALAZINE HCL 25 MG TABLET (FP) PO SCH (22:00)
[2023-05-27] MEDS ORDERED: FERROUS SO4 325 MG TABLET (FP) PO SCH (08:00)
[2023-05-27] MEDS ORDERED: PANTOPRAZOLE 40 MG TABLET PO SCH (10:00)
[2023-05-27] MEDS ORDERED: ATENOLOL 50 MG TABLET (FP) PO SCH (10:00)
[2023-05-27] MEDS ORDERED: amLODIPine BESYLATE 10 MG TABLET (FP) PO SCH (10:00)
[2023-05-27] MEDS ORDERED: LISINOPRIL 20 MG TABLET PO SCH (10:00)
== END 2023-05-26 18:45 | disposition left against medical advice (07) ==
LOC: JER 11:44 → JERBED 16:13
PROVIDERS: ADMIT Internal Medicine; ATTEND Internal Medicine
PROC: 3E033NZ Introduction of Analgesics, Hypnotics, Sedatives into Peripheral Vein, Percutaneous Approach (ICD-10-PCS; principal; 2023-05-26)
PROC: 3E033GC Introduction of Other Therapeutic Substance into Peripheral Vein, Percutaneous Approach (ICD-10-PCS; 2023-05-26)
DX: I12.0 Hypertensive chronic kidney disease with stage 5 chronic kidney disease or end stage renal disease (principal); N18.6 End stage renal disease; Z87.891 Personal history of nicotine dependence; Z99.2 Dependence on renal dialysis; R51.9 Headache, unspecified; R79.89 Other specified abnormal findings of blood chemistry; D64.9 Anemia, unspecified
CPT/HCPCS: 36415; 71045-TC-FY; 80053; 82728; 83540; 83550; 83735; 84466; 84484; 85025; 93005; 93010; 96374; 96375; 99285-25; G0378; J1100

== ENCOUNTER 2023-09-29 02:58 | Inpatient (IN) | payer OTHER ==
[2023-09-29 04:01] LABS: VENOUS O2 SATURATION 65.4 % (70-80); VENOUS PCO2 43.4 mmHg (38-52); VENOUS PH 7.396 (7.310-7.410)
[2023-09-29 04:03] LABS: BASO % 0.8 % (0-2.0); EOS % 3.8 % (0-4.5); HEMATOCRIT 20.6 % (35.4-49); LYMPH % 23.6 % (8-40); MCH 26.3 pg (25.7-33.7); MCHC 33.8 g/dl (32.0-35.9); MEAN CELL VOLUME 77.8 fl (80-96); MEAN PLT VOLUME 7.4 fl (7.5-11.1); MONO % 8.1 % (3.8-10.2); NEUT % 63.7 % (42.8-82.8); PLATELET COUNT 204 10^3/uL (134-434); RBC 2.65 M/mm3 (4.00-5.60); RDW 18.6 % (11.9-15.9); WHITE BLOOD COUNT 8.3 K/mm3 (4.0-10.0)
[2023-09-29 04:05] LABS: INR 1.1 (0.83-1.09); PROTHROMBIN TIME (PATIENT) 12.8 SEC (9.7-13.0)
[2023-09-29 04:07] LABS: ACTIVATED PTT 31.2 SECONDS (25.2-36.5)
[2023-09-29] MEDS: NITROGLYCERIN 25MG/D5W 250ML 25 MG/250 ML ML IVPB SCH ×2 (04:08→20:09)
[2023-09-29] MEDS ORDERED: NITROGLYCERIN 25MG/D5W 250ML 25 MG/250 ML ML IVPB ONE ×2 (04:11→14:31)
[2023-09-29] MEDS: LORazepam 2 MG/ML SDV VIAL IVPUSH ONE ×2 (04:14→05:01)
[2023-09-29 05:55] LABS: CHLORIDE 105 mmol/L (98-107); POTASSIUM 5.4 mmol/L (3.5-5.1); SODIUM 143 mmol/L (136-145)
[2023-09-29 05:57] LABS: CALCIUM 9.7 mg/dL (8.5-10.1)
[2023-09-29 05:58] LABS: ALBUMIN 3.4 g/dl (3.4-5.0); BLOOD UREA NITROGEN 63.7 mg/dL (7-18); GLUCOSE,RANDOM 89 mg/dL (74-106); MAGNESIUM 2.5 mg/dL (1.8-2.4)
[2023-09-29 06:01] LABS: SGOT/AST 17 U/L (15-37)
[2023-09-29 06:02] LABS: BILIRUBIN,TOTAL 0.4 mg/dL (0.2-1); TOT PROT 7.2 g/dl (6.4-8.2)
[2023-09-29 06:54] LABS: ALK PHOS 153 U/L (45-117); ANION GAP 12 mmol/L (4-13); CO2 26 mmol/L (21-32); CREATININE 14.4 mg/dL (0.55-1.3); SGPT/ALT 23 U/L (13-61)
[2023-09-29] MEDS: ASPIRIN 81 MG CHEWABLE TABLETS PO ONE (06:59)
[2023-09-29] MEDS ORDERED: ASPIRIN 81 MG CHEWABLE TABLETS ONE (07:00)
[2023-09-29 07:11] LABS: N-TERMINAL BNP > 35000.0 pg/ml (5-125)
[2023-09-29] MEDS ORDERED: SODIUM CHLORIDE 250 ML IV PRN ×2 (08:42→19:12)
[2023-09-29] MEDS ORDERED: ACETAMINOPHEN 500 MG TABLET (FP) ONE (12:29)
[2023-09-29] MEDS: ACETAMINOPHEN 500 MG TABLET (FP) PO PRN ×2 (12:39→20:08)
[2023-09-29] MEDS ORDERED: HEPARIN NA (PORCINE) 5,000 UNITS/ML 1ML VIAL ONE (14:19)
[2023-09-29] MEDS: SEVELAMER CARBONATE 800 MG TAB (FP) PO SCH (14:24)
[2023-09-29] MEDS: HEPARIN NA (PORCINE) 5,000 UNITS/ML 1ML VIAL SQ SCH ×2 (14:24→21:28)
[2023-09-29] MEDS: LABETALOL HCL 5 MG/1 ML (100MG/20 ML VIAL) IVPUSH ONE ×2 (16:56→23:08)
[2023-09-29 17:17] VITALS: BMI 32.0
[2023-09-29] MEDS: EPOETIN ALFA-EPBX 10,000 UNIT/ML VIAL SQ ONE ×2 (19:36→20:25)
[2023-09-29] MEDS: CHLORHEXIDINE GLUCONATE 4% CLEANSER FOR DECOLONIZATION TP SCH (21:28)
[2023-09-29] MEDS: hydrALAZINE HCL 25 MG TABLET (FP) PO SCH (21:28)
[2023-09-29] MEDS: MUPIROCIN 2% TOPICAL OINTMENT FOR DECOLONIZATION NS SCH (21:28)
[2023-09-29] MEDS ORDERED: hydrALAZINE HCL 25 MG TABLET (FP) PO SCH (22:00)
[2023-09-30] MEDS: hydrALAZINE HCL 20 MG/ML VIAL IVPUSH PRN (00:05)
[2023-09-30] MEDS ORDERED: hydrALAZINE HCL 50 MG TABLET (FP) PO SCH ×2 (06:07→14:10)
[2023-09-30] MEDS: NICARDIPINE 25 MG in DEXTROSE 5%-WATER - 240 ML IVPB SCH (06:43)
[2023-09-30] MEDS ORDERED: hydrALAZINE HCL 20 MG/ML VIAL IVPUSH PRN (07:54)
[2023-09-30 08:00] LABS: BASO % 0.6 % (0-2.0); EOS % 3.3 % (0-4.5); HEMATOCRIT 17.7 % (35.4-49); LYMPH % 24.8 % (8-40); MCH 26.3 pg (25.7-33.7); MCHC 33.6 g/dl (32.0-35.9); MEAN CELL VOLUME 78.2 fl (80-96); MEAN PLT VOLUME 7.5 fl (7.5-11.1); MONO % 10.2 % (3.8-10.2); NEUT % 61.1 % (42.8-82.8); PLATELET COUNT 188 10^3/uL (134-434); RBC 2.27 M/mm3 (4.00-5.60); RDW 18.3 % (11.9-15.9); WHITE BLOOD COUNT 7.3 K/mm3 (4.0-10.0)
[2023-09-30 08:14] LABS: CHLORIDE 99 mmol/L (98-107); POTASSIUM 4.4 mmol/L (3.5-5.1); SODIUM 137 mmol/L (136-145)
[2023-09-30 08:22] LABS: ALBUMIN 3.2 g/dl (3.4-5.0); ANION GAP 7 mmol/L (4-13); CALCIUM 9.4 mg/dL (8.5-10.1); CO2 31 mmol/L (21-32); GLUCOSE,RANDOM 92 mg/dL (74-106)
[2023-09-30 08:24] LABS: SGPT/ALT 25 U/L (13-61)
[2023-09-30 08:25] LABS: PHOSPHOROUS 6.7 mg/dL (2.5-4.9); SGOT/AST 15 U/L (15-37)
[2023-09-30 08:26] LABS: BILIRUBIN,TOTAL 0.4 mg/dL (0.2-1); TOT PROT 6.4 g/dl (6.4-8.2)
[2023-09-30 08:27] LABS: ALK PHOS 135 U/L (45-117)
[2023-09-30] MEDS ORDERED: INSULIN (NOVOLOG) ASPART 100 UNITS/ML 10ML VIAL ONE (08:34)
[2023-09-30 08:36] LABS: BLOOD UREA NITROGEN 33.8 mg/dL (7-18); CREATININE 9.4 mg/dL (0.55-1.3)
[2023-09-30] MEDS: SEVELAMER CARBONATE 800 MG TAB (FP) PO SCH (08:41)
[2023-09-30] MEDS: amLODIPine BESYLATE 10 MG TABLET (FP) PO SCH (09:01)
[2023-09-30] MEDS: LISINOPRIL 20 MG TABLET PO SCH (09:01)
[2023-09-30] MEDS: PANTOPRAZOLE 40 MG TABLET PO SCH (09:01)
[2023-09-30] MEDS: hydrALAZINE HCL 50 MG TABLET (FP) PO SCH ×3 (09:02→21:28)
[2023-09-30] MEDS ORDERED: PANTOPRAZOLE 40 MG TABLET PO SCH (10:00)
[2023-09-30] MEDS ORDERED: LISINOPRIL 20 MG TABLET PO SCH (10:00)
[2023-09-30] MEDS ORDERED: amLODIPine BESYLATE 10 MG TABLET (FP) PO SCH (10:00)
[2023-09-30] MEDS ORDERED: ATENOLOL 50 MG TABLET (FP) PO SCH ×3 (10:00→14:40)
[2023-09-30] MEDS: IRON SUCROSE INJECTION 100 MG in SODIUM CHLORIDE 95 ML IVPB ONE (10:35)
[2023-09-30] MEDS: EPOETIN ALFA-EPBX 20,000 UNIT/2 ML MDV SQ ONE (10:47)
[2023-09-30] MEDS: EPOETIN ALFA-EPBX 10,000 UNIT/ML VIAL SQ ONE (13:33)
[2023-09-30] MEDS: IRON SUCROSE INJECTION 200 MG in SODIUM CHLORIDE 90 ML IVPB ONE (13:34)
[2023-09-30 14:51] LABS: IRON SERUM 55 ug/dL (50-175); TOTAL IRON BINDING CAPACITY 148 ug/dL (250-450)
[2023-09-30 14:59] LABS: RETICULOCYTES 2.35 % (0.5-1.5)
[2023-09-30] MEDS ORDERED: niCARdipine HCL 25 MG/10 ML AMPUL IVPB ONE (19:40)
[2023-09-30] MEDS: CARVEDILOL 12.5 MG TABLET (FP) PO SCH (21:27)
[2023-10-01 07:21] LABS: BASO % 0.6 % (0-2.0); EOS % 4.2 % (0-4.5); HEMATOCRIT 18.6 % (35.4-49); LYMPH % 30.9 % (8-40); MCH 26.5 pg (25.7-33.7); MCHC 33.9 g/dl (32.0-35.9); MEAN PLT VOLUME 7.7 fl (7.5-11.1); MONO % 11.6 % (3.8-10.2); NEUT % 52.7 % (42.8-82.8); PLATELET COUNT 181 10^3/uL (134-434); RBC 2.39 M/mm3 (4.00-5.60); RDW 18.3 % (11.9-15.9); WHITE BLOOD COUNT 6.4 K/mm3 (4.0-10.0)
[2023-10-01 07:22] LABS: CHLORIDE 97 mmol/L (98-107); POTASSIUM 4.7 mmol/L (3.5-5.1); SODIUM 136 mmol/L (136-145)
[2023-10-01 07:24] LABS: CALCIUM 9.6 mg/dL (8.5-10.1)
[2023-10-01 07:25] LABS: ALBUMIN 2.9 g/dl (3.4-5.0); ANION GAP 10 mmol/L (4-13); BLOOD UREA NITROGEN 47.3 mg/dL (7-18); CO2 29 mmol/L (21-32); GLUCOSE,RANDOM 84 mg/dL (74-106); MAGNESIUM 1.8 mg/dL (1.8-2.4)
[2023-10-01 07:27] LABS: HEMOGLOBIN 6.3 GM/dL (11.7-16.9)
[2023-10-01 07:28] LABS: PHOSPHOROUS 7.5 mg/dL (2.5-4.9); SGOT/AST 15 U/L (15-37); SGPT/ALT 36 U/L (13-61)
[2023-10-01 07:29] LABS: BILIRUBIN,TOTAL 0.5 mg/dL (0.2-1); TOT PROT 6.4 g/dl (6.4-8.2)
[2023-10-01] MEDS ORDERED: ACETAMINOPHEN 500 MG TABLET (FP) PO PRN (07:30)
[2023-10-01 07:31] LABS: ALK PHOS 133 U/L (45-117)
[2023-10-01] MEDS ORDERED: SODIUM CHLORIDE 250 ML IV PRN (09:00)
[2023-10-01] MEDS ORDERED: LISINOPRIL 20 MG TABLET PO SCH (10:00)
[2023-10-01] MEDS: EPOETIN ALFA-EPBX 20,000 UNIT/ML VIAL IVPUSH ONE (10:19)
[2023-10-01] MEDS: LISINOPRIL 20 MG TABLET PO SCH (12:39)
[2023-10-01] MEDS: IRON SUCROSE INJECTION 100 MG in SODIUM CHLORIDE 95 ML IVPB ONE (12:40)
[2023-10-01 13:28] LABS: BASO % 0.8 % (0-2.0); EOS % 4.6 % (0-4.5); HEMOGLOBIN 7.2 GM/dL (11.7-16.9); LYMPH % 26.7 % (8-40); MCH 26.4 pg (25.7-33.7); MCHC 34.1 g/dl (32.0-35.9); MEAN CELL VOLUME 77.2 fl (80-96); MEAN PLT VOLUME 7.7 fl (7.5-11.1); MONO % 8.1 % (3.8-10.2); NEUT % 59.8 % (42.8-82.8); PLATELET COUNT 223 10^3/uL (134-434); RBC 2.72 M/mm3 (4.00-5.60); RDW 18.7 % (11.9-15.9); WHITE BLOOD COUNT 6.2 K/mm3 (4.0-10.0)
[2023-10-01 13:33] LABS: INR 1.06 (0.83-1.09); PROTHROMBIN TIME (PATIENT) 12.3 SEC (9.7-13.0)
[2023-10-01 16:22] LABS: MEAN PLT VOLUME 7.8 fl (7.5-11.1); PLATELET COUNT 196 10^3/uL (134-434)
[2023-10-01 16:23] LABS: HEMATOCRIT 20.2 % (35.4-49); MCH 26.9 pg (25.7-33.7); MCHC 34.6 g/dl (32.0-35.9); MEAN CELL VOLUME 77.7 fl (80-96); RDW 18.8 % (11.9-15.9); WHITE BLOOD COUNT 7.9 K/mm3 (4.0-10.0)
[2023-10-01 16:40] LABS: BILIRUBIN,TOTAL 0.6 mg/dL (0.2-1); BLOOD UREA NITROGEN 20.6 mg/dL (7-18); CALCIUM 9.5 mg/dL (8.5-10.1); CREATININE 6.4 mg/dL (0.55-1.3); POTASSIUM 4.8 mmol/L (3.5-5.1); TOT PROT 6.9 g/dl (6.4-8.2)
[2023-10-01 20:18] VITALS: TEMP 98
[2023-10-02 07:42] LABS: BASO % 0.6 % (0-2.0); EOS % 4.7 % (0-4.5); HEMATOCRIT 19.4 % (35.4-49); LYMPH % 28.2 % (8-40); MCH 26.5 pg (25.7-33.7); MCHC 33.7 g/dl (32.0-35.9); MEAN CELL VOLUME 78.6 fl (80-96); MEAN PLT VOLUME 7.7 fl (7.5-11.1); MONO % 12.2 % (3.8-10.2); NEUT % 54.3 % (42.8-82.8); PLATELET COUNT 195 10^3/uL (134-434); RBC 2.47 M/mm3 (4.00-5.60); RDW 18.4 % (11.9-15.9); WHITE BLOOD COUNT 7.2 K/mm3 (4.0-10.0)
[2023-10-02 07:47] LABS: HEMOGLOBIN 6.5 GM/dL (11.7-16.9)
[2023-10-02 07:51] LABS: CHLORIDE 99 mmol/L (98-107); POTASSIUM 4.3 mmol/L (3.5-5.1); SODIUM 139 mmol/L (136-145)
[2023-10-02 07:59] LABS: CALCIUM 9.9 mg/dL (8.5-10.1)
[2023-10-02 08:00] LABS: ALBUMIN 2.9 g/dl (3.4-5.0); ANION GAP 8 mmol/L (4-13); BLOOD UREA NITROGEN 33.1 mg/dL (7-18); CO2 32 mmol/L (21-32); GLUCOSE,RANDOM 74 mg/dL (74-106); MAGNESIUM 2.1 mg/dL (1.8-2.4)
[2023-10-02 08:02] LABS: SGPT/ALT 41 U/L (13-61)
[2023-10-02 08:03] LABS: PHOSPHOROUS 5.9 mg/dL (2.5-4.9); SGOT/AST 22 U/L (15-37)
[2023-10-02 08:04] LABS: BILIRUBIN,TOTAL 0.4 mg/dL (0.2-1); TOT PROT 6.5 g/dl (6.4-8.2)
[2023-10-02 08:05] LABS: ALK PHOS 136 U/L (45-117)
[2023-10-02] MEDS ORDERED: hydrALAZINE HCL 20 MG/ML VIAL IVPUSH PRN (08:06)
[2023-10-02 08:07] LABS: CREATININE 8.7 mg/dL (0.55-1.3)
[2023-10-02] MEDS: ACETAMINOPHEN 500 MG TABLET (FP) PO PRN (09:14)
[2023-10-02] MEDS: SEVELAMER CARBONATE 800 MG TAB (FP) PO SCH (09:15)
[2023-10-02] MEDS: LISINOPRIL 20 MG TABLET PO SCH (09:15)
[2023-10-02] MEDS: CARVEDILOL 25 MG TABLET (FP) PO SCH (09:15)
[2023-10-02] MEDS: PANTOPRAZOLE 40 MG TABLET PO SCH (09:15)
[2023-10-02] MEDS: amLODIPine BESYLATE 10 MG TABLET (FP) PO SCH (09:15)
[2023-10-02] MEDS ORDERED: CARVEDILOL 12.5 MG TABLET (FP) PO SCH (10:00)
[2023-10-02] MEDS ORDERED: SEVELAMER CARBONATE 800 MG TAB (FP) PO SCH (12:00)
[2023-10-02 12:09] VITALS: PULSE 84; RESP 16
[2023-10-02] MEDS: NIFEdipine E.R. 30 MG TABLET PO SCH (12:38)
[2023-10-02] MEDS: hydrALAZINE HCL 50 MG TABLET (FP) PO SCH (14:30)
[2023-10-02 14:47] VITALS: BP 150/93
[2023-10-02] MEDS ORDERED: IRON SUCROSE INJECTION 100 MG in SODIUM CHLORIDE 95 ML IVPB ONE (16:36)
== END 2023-10-02 17:12 | disposition home or self-care (01) | DRG 425 ==
LOC: JER 02:58 → JERBED 05:07 → JICU 15:56
PROVIDERS: ADMIT Internal Medicine; ATTEND Internal Medicine
PROC: 5A1D70Z Performance of Urinary Filtration, Intermittent, Less than 6 Hours Per Day (ICD-10-PCS; principal; 2023-09-29)
DX: E87.70 Fluid overload, unspecified (principal); I12.0 Hypertensive chronic kidney disease with stage 5 chronic kidney disease or end stage renal disease; N18.6 End stage renal disease; Z99.2 Dependence on renal dialysis; I24.89 Other forms of acute ischemic heart disease; I16.1 Hypertensive emergency; J96.01 Acute respiratory failure with hypoxia; D64.9 Anemia, unspecified; E87.5 Hyperkalemia; D63.1 Anemia in chronic kidney disease; R94.31 Abnormal electrocardiogram [ECG] [EKG]
CPT/HCPCS: 0241U-QW; 36415; 71045-TC-FY; 80053; 82272; 82728; 82803; 83540; 83550; 83735; 83880; 84100; 84466; 84484; 85025; 85027; 85045; 85610; 85730; 86704; 86803; 86850; 86900; 86901; 87340; 87517; 93005; 93010; 93306-TC; 94660; 99291; J1644; J1756; Q5106

== ENCOUNTER 2023-10-12 10:50 | Emergency (ER) | payer OTHER ==
[2023-10-12 10:57] VITALS: PULSE 91; RESP 20; TEMP 98.5; BMI 31.6
[2023-10-12 12:06] LABS: BASO % 0.3 % (0-2.0); HEMATOCRIT 23.2 % (35.4-49); HEMOGLOBIN 7.7 GM/dL (11.7-16.9); LYMPH % 26.3 % (8-40); MCH 27.2 pg (25.7-33.7); MCHC 33.3 g/dl (32.0-35.9); MEAN CELL VOLUME 81.7 fl (80-96); MEAN PLT VOLUME 6.9 fl (7.5-11.1); MONO % 8.2 % (3.8-10.2); NEUT % 59.2 % (42.8-82.8); PLATELET COUNT 220 10^3/uL (134-434); RBC 2.84 M/mm3 (4.00-5.60); RDW 22.4 % (11.9-15.9); WHITE BLOOD COUNT 4.7 K/mm3 (4.0-10.0)
[2023-10-12 12:40] LABS: CHLORIDE 104 mmol/L (98-107); POTASSIUM 4.4 mmol/L (3.5-5.1); SODIUM 144 mmol/L (136-145)
[2023-10-12 12:49] LABS: IRON SERUM 63 ug/dL (50-175)
[2023-10-12 12:50] LABS: CALCIUM 9.9 mg/dL (8.5-10.1); TOTAL IRON BINDING CAPACITY 174 ug/dL (250-450)
[2023-10-12 12:51] LABS: ANION GAP 10 mmol/L (4-13); BLOOD UREA NITROGEN 41.9 mg/dL (7-18); CO2 31 mmol/L (21-32); GLUCOSE,RANDOM 115 mg/dL (74-106); MAGNESIUM 2.5 mg/dL (1.8-2.4)
[2023-10-12 12:54] LABS: SGOT/AST 8 U/L (15-37); SGPT/ALT 19 U/L (13-61)
[2023-10-12 12:56] LABS: BILIRUBIN,TOTAL 0.5 mg/dL (0.2-1); TOT PROT 7.4 g/dl (6.4-8.2)
[2023-10-12 13:00] LABS: ALBUMIN 3.6 g/dl (3.4-5.0); ALK PHOS 185 U/L (45-117)
[2023-10-12 13:56] VITALS: BP 173/99
[2023-10-12] MEDS: EPOETIN ALFA-EPBX 20,000 UNIT/ML VIAL SQ ONE (14:38)
[2023-10-12 14:45] LABS: ANISOCYTOSIS 3+; MACROCYTOSIS 0
[2023-10-12] MEDS: CARVEDILOL 25 MG TABLET (FP) PO ONE (15:20)
[2023-10-12] MEDS ORDERED: HYDROCHLOROTHIAZIDE 25 MG TABLET (FP) ONE (15:24)
[2023-10-12] MEDS ORDERED: CARVEDILOL 25 MG TABLET (FP) ONE (15:25)
[2023-10-12] MEDS: hydrALAZINE HCL 50 MG TABLET (FP) PO ONE (15:30)
[2023-10-12] MEDS ORDERED: hydrALAZINE HCL 50 MG TABLET (FP) ONE (15:40)
[2023-10-12] MEDS: HYDROCHLOROTHIAZIDE 50 MG TABLET PO ONE ×2 (15:48)
== END 2023-10-12 15:50 | disposition home or self-care (01) ==
LOC: JER 10:50
PROC: 3E023GC Introduction of Other Therapeutic Substance into Muscle, Percutaneous Approach (ICD-10-PCS; principal; 2023-10-12)
DX: H53.10 Unspecified subjective visual disturbances (principal); D64.9 Anemia, unspecified; R06.02 Shortness of breath; R42 Dizziness and giddiness
CPT/HCPCS: 36415; 70450-TC; 80053; 82728; 83540; 83550; 83735; 85025; 86850; 86900; 86901; 93005; 93010; 96372; 99285-25

== ENCOUNTER 2024-01-25 11:37 | Day surgery (SDC) | payer OTHER ==
[2024-01-25 12:02] VITALS: BMI 32.5
[2024-01-25 14:14] LABS: BASO % 1.3 % (0-2.0); EOS % 4.7 % (0-4.5); HEMATOCRIT 34.2 % (35.4-49); HEMOGLOBIN 11.5 GM/dL (11.7-16.9); LYMPH % 25.1 % (8-40); MCH 25.2 pg (25.7-33.7); MCHC 33.7 g/dl (32.0-35.9); MEAN CELL VOLUME 74.8 fl (80-96); MEAN PLT VOLUME 8.2 fl (7.5-11.1); MONO % 9.1 % (3.8-10.2); NEUT % 59.8 % (42.8-82.8); PLATELET COUNT 219 10^3/uL (134-434); RBC 4.58 M/mm3 (4.00-5.60); RDW 21.5 % (11.9-15.9); WHITE BLOOD COUNT 5.8 K/mm3 (4.0-10.0)
[2024-01-25] MEDS ORDERED: PAPAVERINE HCL 30 MG/1 ML 10 ML VIAL NR ONE (14:15)
[2024-01-25] MEDS ORDERED: POVIDONE-IODINE OINTMENT 10% - 28.4 GM TUBE ONE (14:15)
[2024-01-25] MEDS ORDERED: LIDOCAINE HCL 1%, 10 MG/ML (20ML VIAL) ONE (14:15)
[2024-01-25] MEDS ORDERED: HEPARIN NA (PORCINE) 5,000 UNITS/ML 1ML VIAL ONE ×3 (14:16→16:20)
[2024-01-25 14:21] LABS: PROTHROMBIN TIME (PATIENT) 11.3 SEC (9.7-13.0)
[2024-01-25 14:41] LABS: CHLORIDE 100 mmol/L (98-107); POTASSIUM 5.7 mmol/L (3.5-5.1); SODIUM 137 mmol/L (136-145)
[2024-01-25 14:44] LABS: CALCIUM 10.2 mg/dL (8.5-10.1)
[2024-01-25 14:45] LABS: ALBUMIN 3.8 g/dl (3.4-5.0); ANION GAP 9 mmol/L (4-13); BLOOD UREA NITROGEN 57.8 mg/dL (7-18); CO2 27 mmol/L (21-32); GLUCOSE,RANDOM 74 mg/dL (74-106)
[2024-01-25 14:48] LABS: SGOT/AST 13 U/L (15-37); SGPT/ALT 11 U/L (13-61)
[2024-01-25 14:50] LABS: BILIRUBIN,TOTAL 0.5 mg/dL (0.2-1); TOT PROT 7.8 g/dl (6.4-8.2)
[2024-01-25 14:51] LABS: ALK PHOS 218 U/L (45-117)
[2024-01-25 14:57] LABS: CREATININE 13.3 mg/dL (0.55-1.3)
[2024-01-25 15:28] LABS: ANISOCYTOSIS 2+; MACROCYTOSIS 0
[2024-01-25] MEDS ORDERED: MIDAZOLAM HCL 2 MG/2 ML SINGLE DOSE VIAL ONE ×2 (15:30→15:40)
[2024-01-25] MEDS ORDERED: FENTANYL CITRATE/PF 50 MCG/ML VIAL ONE ×5 (15:30→18:14)
[2024-01-25] MEDS ORDERED: METOPROLOL TARTRATE 5 MG/5 ML VIAL ONE (15:35)
[2024-01-25] MEDS ORDERED: PROPOFOL 20 ML ONE ×3 (15:44→17:23)
[2024-01-25] MEDS ORDERED: ceFAZolin SODIUM 1 GM VIAL ONE (15:47)
[2024-01-25] MEDS: LIDOCAINE HCL 1%, 10 MG/ML (20ML VIAL) NR ONE ×2 (15:48)
[2024-01-25] MEDS: ceFAZolin SODIUM 1 GM VIAL IVPB ONE (15:48)
[2024-01-25] MEDS ORDERED: hydrALAZINE HCL 20 MG/ML VIAL ONE (15:57)
[2024-01-25] MEDS ORDERED: DEXAMETHASONE SOD PHOSPHATE 4 MG/1 ML VIAL ONE (16:30)
[2024-01-25] MEDS ORDERED: ONDANSETRON 4 MG/2 ML VIAL ONE (16:30)
[2024-01-25] MEDS: POVIDONE-IODINE OINTMENT 10% - 28.4 GM TUBE TP ONE (17:40)
[2024-01-25] MEDS ORDERED: LACTATED RINGERS SOLUTION 1,000 ML IV SCH ×2 (18:00→18:22)
[2024-01-25] MEDS ORDERED: ONDANSETRON 4 MG/2 ML VIAL IVPUSH PRN ×2 (18:07→18:22)
[2024-01-25] MEDS: oxyCODONE HCL 5 MG TABLET PO PRN (20:05)
[2024-01-25] MEDS: ACETAMINOPHEN 325 MG TABLET (FP) PO SCH (20:05)
[2024-01-25] MEDS: CARVEDILOL 25 MG TABLET (FP) PO SCH (21:19)
[2024-01-25] MEDS: hydrALAZINE HCL 50 MG TABLET (FP) PO SCH (21:19)
[2024-01-26] MEDS: SEVELAMER CARBONATE 800 MG TAB (FP) PO SCH (10:34)
[2024-01-26] MEDS ORDERED: SODIUM CHLORIDE 250 ML IV PRN (11:11)
[2024-01-26] MEDS: HEPARIN NA (PORCINE) 1,000 UNITS/ML 10ML M-D VIAL SQ SCH (11:15)
[2024-01-26 11:26] LABS: BASO % 0.6 % (0-2.0); EOS % 0.2 % (0-4.5); HEMATOCRIT 32.7 % (35.4-49); HEMOGLOBIN 11.1 GM/dL (11.7-16.9); LYMPH % 24.5 % (8-40); MCH 25.1 pg (25.7-33.7); MCHC 33.8 g/dl (32.0-35.9); MEAN CELL VOLUME 74.2 fl (80-96); MEAN PLT VOLUME 8.1 fl (7.5-11.1); MONO % 5.4 % (3.8-10.2); NEUT % 69.3 % (42.8-82.8); PLATELET COUNT 180 10^3/uL (134-434); RBC 4.41 M/mm3 (4.00-5.60); RDW 21.6 % (11.9-15.9); WHITE BLOOD COUNT 5.4 K/mm3 (4.0-10.0)
[2024-01-26 11:42] LABS: CHLORIDE 99 mmol/L (98-107); SODIUM 134 mmol/L (136-145)
[2024-01-26 11:44] LABS: CO2 25 mmol/L (21-32)
[2024-01-26 11:45] LABS: BLOOD UREA NITROGEN 74.5 mg/dL (7-18); GLUCOSE,RANDOM 107 mg/dL (74-106)
[2024-01-26 11:53] LABS: ANION GAP 10 mmol/L (4-13); CREATININE 14.1 mg/dL (0.55-1.3); POTASSIUM 6.3 mmol/L (3.5-5.1)
[2024-01-26] MEDS: LISINOPRIL 20 MG TABLET PO SCH (14:38)
[2024-01-26] MEDS: PANTOPRAZOLE 40 MG TABLET PO SCH (14:38)
[2024-01-26] MEDS: NIFEdipine E.R. 30 MG TABLET PO SCH (14:38)
[2024-01-26 15:23] VITALS: BP 191/108; PULSE 111; RESP 22; TEMP 99.2
== END 2024-01-26 17:13 | disposition home or self-care (01) ==
LOC: JER 11:37 → JASUSAT 14:45 → J5S 19:46 → JASUSAT 01-26 17:13
PROVIDERS: ATTEND Surgery
PROC: 3E033GC Introduction of Other Therapeutic Substance into Peripheral Vein, Percutaneous Approach (ICD-10-PCS; principal; 2024-01-25 16:00)
DX: T82.590A Other mechanical complication of surgically created arteriovenous fistula, initial encounter (principal); M79.89 Other specified soft tissue disorders
CPT/HCPCS: 36415; 71046-TC-FY; 76000-TC-FY; 80048; 80053; 85025; 85610; 85730; 86850; 86900; 86901; 87340; 93005; 93010; 94760; 99285-25; C1757; C1876; C1897; J1644

== ENCOUNTER 2024-12-12 12:13 | Inpatient (IN) | payer OTHER ==
[2024-12-12 12:51] VITALS: BMI 29.0
[2024-12-12 13:48] LABS: HEMATOCRIT 17.4 % (40.1-51.0); HEMOGLOBIN 5.3 g/dL (13.7-17.5); MCHC 30.5 g/dl (32.3-36.5); MEAN CELL VOLUME 79.1 fl (79.0-92.2); MEAN PLT VOLUME 10.3 fl (9.4-12.4); PLATELET COUNT 243 x10^3/uL (163-337); RDW 20.6 % (12.0-15.6)
[2024-12-12 13:49] LABS: Reticulocyte % 3.98 % (0.51-1.81)
[2024-12-12 13:59] LABS: INR 1.24 (0.83-1.09); PROTHROMBIN TIME (PATIENT) 13.5 SEC (9.7-13.0)
[2024-12-12 14:02] LABS: ACTIVATED PTT 31.7 SECONDS (25.2-36.5)
[2024-12-12 14:15] LABS: CHLORIDE 100 mmol/L (98-107); POTASSIUM 5.1 mmol/L (3.5-5.1); SODIUM 139 mmol/L (136-145)
[2024-12-12 14:17] LABS: ALBUMIN 3.3 g/dl (3.4-5.0); ANION GAP 9 mmol/L (4-13); CALCIUM 10.2 mg/dL (8.5-10.1); CO2 30 mmol/L (21-32)
[2024-12-12 14:18] LABS: BLOOD UREA NITROGEN 39.7 mg/dL (7-18); MAGNESIUM 2.2 mg/dL (1.8-2.4)
[2024-12-12 14:20] LABS: GLUCOSE,RANDOM 84 mg/dL (74-106); SGOT/AST 23 U/L (15-37); SGPT/ALT 21 U/L (13-61)
[2024-12-12 14:21] LABS: PHOSPHOROUS 5.7 mg/dL (2.5-4.9)
[2024-12-12 14:22] LABS: BILIRUBIN,TOTAL 0.4 mg/dL (0.2-1); TOT PROT 6.6 g/dl (6.4-8.2)
[2024-12-12 14:23] LABS: ALK PHOS 304 U/L (45-117)
[2024-12-12 14:30] LABS: CREATININE 10.1 mg/dL (0.55-1.3)
[2024-12-12 15:11] LABS: HCV DIAGNOSTIC IN-HOUSE W/RFLX NON-REACTIVE (NONREACTIVE)
[2024-12-12] MEDS ORDERED: hydrALAZINE HCL 50 MG TABLET (FP) ONE (16:47)
[2024-12-12] MEDS: hydrALAZINE HCL 50 MG TABLET (FP) PO ONE (16:49)
[2024-12-12] MEDS ORDERED: hydrALAZINE HCL 50 MG TABLET (FP) PO ONE (17:30)
[2024-12-12 17:37] LABS: HIV INTERPRETATION NEGATIVE (NEGATIVE)
[2024-12-12] MEDS: LORazepam 2 MG/ML SDV VIAL IVPUSH ONE ×2 (18:23→19:06)
[2024-12-12] MEDS: hydrALAZINE HCL 20 MG/ML VIAL IVPUSH ONE (18:24)
[2024-12-12] MEDS: LABETALOL HCL 20 MG/4 ML VIAL IVPUSH ONE (18:31)
[2024-12-12] MEDS: DEXMEDETOMIDINE PREMIX 400 MCG/100 ML BAG IVPB SCH (19:00)
[2024-12-12] MEDS ORDERED: SODIUM CHLORIDE 250 ML IV PRN (20:23)
[2024-12-12 20:33] LABS: HEMATOCRIT 19.3 % (40.1-51.0); HEMOGLOBIN 6.2 g/dL (13.7-17.5); MCHC 32.1 g/dl (32.3-36.5); MEAN CELL VOLUME 80.8 fl (79.0-92.2); MEAN PLT VOLUME 10.1 fl (9.4-12.4); PLATELET COUNT 229 x10^3/uL (163-337); RDW 19.9 % (12.0-15.6)
[2024-12-12 20:52] LABS: CHLORIDE 100 mmol/L (98-107); POTASSIUM 4.4 mmol/L (3.5-5.1); SODIUM 141 mmol/L (136-145)
[2024-12-12 20:53] LABS: CALCIUM 9.6 mg/dL (8.5-10.1)
[2024-12-12 20:54] LABS: ANION GAP 10 mmol/L (4-13); BLOOD UREA NITROGEN 32.9 mg/dL (7-18); CO2 31 mmol/L (21-32); GLUCOSE,RANDOM 127 mg/dL (74-106)
[2024-12-12 21:11] LABS: CREATININE 7.5 mg/dL (0.55-1.3)
[2024-12-12] MEDS: EPOETIN ALFA-EPBX 20,000 UNIT/ML VIAL SQ ONE (21:41)
[2024-12-12] MEDS: hydrALAZINE HCL 50 MG TABLET (FP) PO SCH (22:58)
[2024-12-12] MEDS: CARVEDILOL 25 MG TABLET (FP) PO SCH (22:58)
[2024-12-13] MEDS: SEVELAMER CARBONATE 800 MG TAB (FP) PO SCH (05:23)
[2024-12-13] MEDS: ACETAMINOPHEN 325 MG TABLET (FP) PO PRN (06:41)
[2024-12-13 06:44] LABS: ABSOLUTE IMMATURE GRANULOCYTES 0.03 x10^3/uL (0.0-0.031); BASOPHILS # 0.05 x10^3/uL (0.01-0.08); EOSINOPHIL % 4.1 % (0.8-7.0); EOSINOPHILS # 0.24 x10^3/uL (0.04-0.54); HEMATOCRIT 22.7 % (40.1-51.0); HEMOGLOBIN 7.2 g/dL (13.7-17.5); MCHC 31.7 g/dl (32.3-36.5); MEAN CELL VOLUME 81.4 fl (79.0-92.2); MEAN PLT VOLUME 9.7 fl (9.4-12.4); MONOCYTE # 0.42 x10^3/uL (0.30-0.82); MONOCYTE % 7.2 % (5.3-12.2); PLATELET COUNT 219 x10^3/uL (163-337); RDW 18.3 % (12.0-15.6)
[2024-12-13 06:48] LABS: POTASSIUM 4.3 mmol/L (3.5-5.1)
[2024-12-13 06:50] LABS: CALCIUM 10.5 mg/dL (8.5-10.1)
[2024-12-13 06:51] LABS: ALBUMIN 3.2 g/dl (3.4-5.0); BLOOD UREA NITROGEN 21.5 mg/dL (7-18); MAGNESIUM 2.1 mg/dL (1.8-2.4)
[2024-12-13 06:54] LABS: CREATININE 6.3 mg/dL (0.55-1.3); PHOSPHOROUS 5.9 mg/dL (2.5-4.9)
[2024-12-13 06:55] LABS: BILIRUBIN,TOTAL 0.6 mg/dL (0.2-1)
[2024-12-13 06:56] LABS: TOT PROT 6.6 g/dl (6.4-8.2)
[2024-12-13] MEDS: NIFEdipine E.R. 90 MG TABLET PO SCH (09:03)
[2024-12-13] MEDS: LISINOPRIL 20 MG TABLET PO SCH (09:03)
[2024-12-13] MEDS ORDERED: SODIUM CHLORIDE 250 ML IV PRN (09:06)
[2024-12-13] MEDS ORDERED: NIFEdipine E.R 60 MG TABLET PO SCH (10:00)
[2024-12-13] MEDS: PANTOPRAZOLE 40 MG TABLET PO SCH (10:49)
[2024-12-13] MEDS ORDERED: LABETALOL HCL 20 MG/4 ML VIAL IVPUSH PRN (18:00)
[2024-12-14 06:51] LABS: ABSOLUTE IMMATURE GRANULOCYTES 0.06 x10^3/uL (0.0-0.031); HEMOGLOBIN 8.4 g/dL (13.7-17.5); MONOCYTE # 0.55 x10^3/uL (0.30-0.82)
[2024-12-14 06:54] LABS: BASOPHILS # 0.07 x10^3/uL (0.01-0.08); EOSINOPHIL % 8.2 % (0.8-7.0); EOSINOPHILS # 0.45 x10^3/uL (0.04-0.54); HEMATOCRIT 26.8 % (40.1-51.0); MCHC 31.3 g/dl (32.3-36.5); MEAN CELL VOLUME 82.2 fl (79.0-92.2); PLATELET COUNT 156 x10^3/uL (163-337); RDW 19.1 % (12.0-15.6)
[2024-12-14 08:01] LABS: POTASSIUM 3.8 mmol/L (3.5-5.1)
[2024-12-14 08:03] LABS: BLOOD UREA NITROGEN 22.1 mg/dL (7-18); CALCIUM 10.1 mg/dL (8.5-10.1)
[2024-12-14 08:06] LABS: CREATININE 5.7 mg/dL (0.55-1.3)
[2024-12-14 08:08] LABS: BILIRUBIN,TOTAL 0.6 mg/dL (0.2-1); TOT PROT 6.4 g/dl (6.4-8.2)
[2024-12-14] MEDS: PANTOPRAZOLE 40 MG TABLET PO SCH (09:26)
[2024-12-14] MEDS ORDERED: SODIUM CHLORIDE 250 ML IV PRN (13:13)
[2024-12-14 14:21] VITALS: RESP 16; TEMP 98.5
[2024-12-14 15:46] LABS: HEMATOCRIT 28.7 % (40.1-51.0); HEMOGLOBIN 9.1 g/dL (13.7-17.5); MCHC 31.7 g/dl (32.3-36.5); MEAN CELL VOLUME 81.8 fl (79.0-92.2); MEAN PLT VOLUME 9.3 fl (9.4-12.4); PLATELET COUNT 265 x10^3/uL (163-337); RDW 19.7 % (12.0-15.6)
[2024-12-14 18:03] VITALS: BP 142/84; PULSE 85
[2024-12-15] MEDS ORDERED: EPOETIN ALFA-EPBX 10,000 UNIT/ML VIAL SQ ONE (13:13)
[2024-12-15 17:09] LABS: HGB SOLUBILITY Positive (Negative)
== END 2024-12-14 18:10 | disposition home or self-care (01) | DRG 663 ==
LOC: JER 12:13 → JERBED 14:24 → JICU 18:15
PROVIDERS: ADMIT Student in an Organized Health Care Education/Training Program; ATTEND Internal Medicine
PROC: 30233N1 Transfusion of Nonautologous Red Blood Cells into Peripheral Vein, Percutaneous Approach (ICD-10-PCS; principal; 2024-12-12)
PROC: 5A1D70Z Performance of Urinary Filtration, Intermittent, Less than 6 Hours Per Day (ICD-10-PCS; 2024-12-13)
DX: D64.9 Anemia, unspecified (principal); I50.43 Acute on chronic combined systolic (congestive) and diastolic (congestive) heart failure; J81.0 Acute pulmonary edema; I24.89 Other forms of acute ischemic heart disease; N18.6 End stage renal disease; I13.2 Hypertensive heart and chronic kidney disease with heart failure and with stage 5 chronic kidney disease, or end stage renal disease; I10 Essential (primary) hypertension; I16.1 Hypertensive emergency; D57.1 Sickle-cell disease without crisis; T80.92XA Unspecified transfusion reaction, initial encounter; Y83.9 Surgical procedure, unspecified as the cause of abnormal reaction of the patient, or of later complication, without mention of misadventure at the time of the procedure; Z99.2 Dependence on renal dialysis
CPT/HCPCS: 36415; 36430; 71045-TC-FY; 80048; 80053; 82728; 83010; 83021; 83540; 83550; 83615; 83735; 84100; 84484; 85025; 85027; 85610; 85660; 85730; 86803; 86850; 86900; 86901; 86922; 87340; 87389; 93005; 93010; 94660; 99285-25; P9058

== ENCOUNTER 2025-02-03 11:21 | Observation (INO) | payer OTHER ==
[2025-02-03 11:32] VITALS: BMI 28.4
[2025-02-03 12:34] LABS: ABSOLUTE IMMATURE GRANULOCYTES 0.02 x10^3/uL (0.0-0.031); BASOPHILS # 0.02 x10^3/uL (0.01-0.08); EOSINOPHIL % 8.3 % (0.8-7.0); EOSINOPHILS # 0.33 x10^3/uL (0.04-0.54); HEMATOCRIT 19.9 % (40.1-51.0); HEMOGLOBIN 6.2 g/dL (13.7-17.5); MCHC 31.2 g/dl (32.3-36.5); MEAN CELL VOLUME 74.5 fl (79.0-92.2); MEAN PLT VOLUME 9.6 fl (9.4-12.4); MONOCYTE # 0.54 x10^3/uL (0.30-0.82); MONOCYTE % 13.5 % (5.3-12.2); PLATELET COUNT 177 x10^3/uL (163-337); RDW 21.7 % (12.0-15.6)
[2025-02-03 12:41] LABS: INR 1.11 (0.83-1.09); PROTHROMBIN TIME (PATIENT) 12.2 SEC (9.7-13.0)
[2025-02-03 12:44] LABS: ACTIVATED PTT 31.6 SECONDS (25.2-36.5)
[2025-02-03 12:58] LABS: CHLORIDE 98 mmol/L (98-107); POTASSIUM 4.7 mmol/L (3.5-5.1); SODIUM 135 mmol/L (136-145)
[2025-02-03 13:02] LABS: ALBUMIN 3.8 g/dl (3.4-5.0); ANION GAP 7 mmol/L (4-13); BLOOD UREA NITROGEN 43.6 mg/dL (7-18); CALCIUM 10.4 mg/dL (8.5-10.1); CO2 30 mmol/L (21-32); GLUCOSE,RANDOM 85 mg/dL (74-106); MAGNESIUM 2.5 mg/dL (1.8-2.4)
[2025-02-03 13:04] LABS: PHOSPHOROUS 6.5 mg/dL (2.5-4.9); SGOT/AST 8 U/L (15-37); SGPT/ALT 10 U/L (13-61)
[2025-02-03 13:06] LABS: BILIRUBIN,TOTAL 0.6 mg/dL (0.2-1); CREATININE 9.1 mg/dL (0.55-1.3); TOT PROT 7.8 g/dl (6.4-8.2)
[2025-02-03 13:07] LABS: ALK PHOS 415 U/L (45-117)
[2025-02-03 14:15] VITALS: RESP 18
[2025-02-03 21:06] LABS: HCV DIAGNOSTIC IN-HOUSE W/RFLX NON-REACTIVE (NONREACTIVE)
[2025-02-03 21:07] LABS: HIV INTERPRETATION NEGATIVE (NEGATIVE)
[2025-02-03] MEDS: CARVEDILOL 25 MG TABLET (FP) PO SCH (21:13)
[2025-02-03] MEDS: MELATONIN 5 MG TABLETS PO PRN (22:34)
[2025-02-04] MEDS ORDERED: SODIUM CHLORIDE 250 ML IV PRN (09:06)
[2025-02-04] MEDS: SEVELAMER CARBONATE 800 MG TAB (FP) PO SCH (09:12)
[2025-02-04] MEDS: EPOETIN ALFA-EPBX 10,000 UNIT/ML VIAL SQ ONE (09:14)
[2025-02-04] MEDS ORDERED: EPOETIN ALFA-EPBX 20,000 UNIT/ML VIAL SQ ONE (09:15)
[2025-02-04 09:29] LABS: ABSOLUTE IMMATURE GRANULOCYTES 0.02 x10^3/uL (0.0-0.031); BASOPHILS # 0.01 x10^3/uL (0.01-0.08); EOSINOPHIL % 8.3 % (0.8-7.0); EOSINOPHILS # 0.33 x10^3/uL (0.04-0.54); HEMATOCRIT 18.7 % (40.1-51.0); HEMOGLOBIN 6.2 g/dL (13.7-17.5); MCHC 33.2 g/dl (32.3-36.5); MEAN CELL VOLUME 74.5 fl (79.0-92.2); MONOCYTE # 0.39 x10^3/uL (0.30-0.82); MONOCYTE % 9.8 % (5.3-12.2); PLATELET COUNT 164 x10^3/uL (163-337); RDW 21.1 % (12.0-15.6)
[2025-02-04 09:51] LABS: CHLORIDE 97 mmol/L (98-107); POTASSIUM 5.2 mmol/L (3.5-5.1); SODIUM 135 mmol/L (136-145)
[2025-02-04 09:53] LABS: CALCIUM 10.5 mg/dL (8.5-10.1)
[2025-02-04 09:54] LABS: ALBUMIN 3.3 g/dl (3.4-5.0); ANION GAP 10 mmol/L (4-13); BLOOD UREA NITROGEN 61.5 mg/dL (7-18); CO2 28 mmol/L (21-32); GLUCOSE,RANDOM 94 mg/dL (74-106); MAGNESIUM 2.2 mg/dL (1.8-2.4)
[2025-02-04 09:57] LABS: PHOSPHOROUS 7.5 mg/dL (2.5-4.9); SGOT/AST 11 U/L (15-37); SGPT/ALT 13 U/L (13-61)
[2025-02-04 09:58] LABS: BILIRUBIN,TOTAL 0.4 mg/dL (0.2-1); TOT PROT 6.7 g/dl (6.4-8.2)
[2025-02-04] MEDS ORDERED: PANTOPRAZOLE 40 MG TABLET PO SCH (10:00)
[2025-02-04 10:37] LABS: ALK PHOS 384 U/L (45-117)
[2025-02-04 12:00] LABS: HEPATITIS B SURF AG NON-MATERN NON-REACTIVE (NONREACTIVE)
[2025-02-04 12:28] LABS: HCV DIAGNOSTIC IN-HOUSE W/RFLX NON-REACTIVE (NONREACTIVE)
[2025-02-04] MEDS: LISINOPRIL 20 MG TABLET PO SCH (12:43)
[2025-02-04] MEDS: PANTOPRAZOLE 40 MG TABLET PO SCH (12:43)
[2025-02-04] MEDS: NIFEdipine E.R. 90 MG TABLET PO SCH (12:43)
[2025-02-04 14:04] LABS: HEMATOCRIT 21.8 % (40.1-51.0); HEMOGLOBIN 7.2 g/dL (13.7-17.5); MEAN CELL VOLUME 76.2 fl (79.0-92.2); PLATELET COUNT 185 x10^3/uL (163-337)
[2025-02-04 17:04] VITALS: BP 169/104; PULSE 91; TEMP 99.3
== END 2025-02-04 23:10 | disposition home or self-care (01) ==
LOC: JER 11:21 → INTOOBSV 13:21 → JERBED 13:21 → J5S 15:14
PROVIDERS: ATTEND Internal Medicine
PROC: 30233N1 Transfusion of Nonautologous Red Blood Cells into Peripheral Vein, Percutaneous Approach (ICD-10-PCS; principal; 2025-02-03)
PROC: 3E023GC Introduction of Other Therapeutic Substance into Muscle, Percutaneous Approach (ICD-10-PCS; 2025-02-03)
PROC: 3E0337Z Introduction of Electrolytic and Water Balance Substance into Peripheral Vein, Percutaneous Approach (ICD-10-PCS; 2025-02-03)
DX: D64.89 Other specified anemias (principal); N18.6 End stage renal disease; I12.0 Hypertensive chronic kidney disease with stage 5 chronic kidney disease or end stage renal disease; D57.1 Sickle-cell disease without crisis; E83.52 Hypercalcemia; E83.39 Other disorders of phosphorus metabolism
CPT/HCPCS: 0241U-QW; 36415; 36430; 71046-TC-FY; 80053; 83735; 84100; 85025; 85027; 85610; 85730; 86704; 86707; 86803; 86922; 87340; 87389; 96372; 99291; G0378; P9051; P9058; Q5106